=== PATIENT | male | born 1960 | race Two or more races ===

== ENCOUNTER 2017-05-04 11:40 | Inpatient (IN) | payer OTHER ==
[2017-05-04 12:08] VITALS: BMI 40.6
[2017-05-04] MEDS ORDERED: ALBUTEROL SO4 2.5/IPRATROPIUM 0.5 INH SOL 3 ML VIAL.NEB. NEB ONE ×4 (13:08→17:30)
--- NOTE | 2017-05-04 13:10 | PDOC ---
History of Present Illness - General Chief Complaint: Revisit, Lab Variance Stated Complaint: LAB VARIANCE, ADMIT (PCP SENT) Time Seen by Provider: 05/04/17 12:54 History Source: Patient Exam Limitations: No Limitations - History of Present Illness Initial Comments: 05/04/17 14:06 Patient is a 56-year-old male with past medical history of hypertension, CHF, asthma, A. fib on warfarin, who presents to the emergency department today for shortness of breath and shortness of breath on exertion. Patient recently had a exercise stress test done through Dr. Dorman, cardiology. Results showed a moderately sized anterior wall reversible perfusion defects consistent with ischemia as well as a moderately sized inferior wall perfusion defect consistent with ischemia. There is also a dilated left ventricle with severe global hypokinesis and severely reduced systolic function with an ejection fraction of approximately 30%. Pt. states he has been taking lasix as an outpatient. Given his stress test results, failed home treatment for his CHF, and his inability to ambulate d/t shortness of breath, Dr. Nath recommended the patient come over for admission. Patient admits to orthopnea, cough, wheeze , dyspnea on exertion, dyspnea at rest. Denies fevers, chills, chest pain, palpitations, nausea, vomiting and diarrhea. Past History - Travel Traveled outside of the country in the last 30 days: No Close contact w/someone who was outside of country & ill: No - Past Medical History Allergies/Adverse Reactions: Allergies Allergy/AdvReac Type Severity Reaction Status Date / Time No Known Allergies Allergy Verified 05/04/17 12:02 Home Medications: Ambulatory Orders Furosemide [Lasix -] 40 mg PO DAILY 05/04/17 Metoprolol Succinate 50 mg PO DAILY 05/04/17 Warfarin Sodium 1 mg PO ASDIR 05/04/17 Asthma: Yes COPD: No HTN: Yes Hypercholesterolemia: Yes - Surgical History Appendectomy: Yes - Immunization History Immunization Up to Date: Yes - Suicide/Smoking/Psychosocial Hx Smoking History: Never smoked Have you smoked in the past 12 months: No If you are a former smoker, when did you quit?: 20YRS Information on smoking cessation initiated: No Hx Alcohol Use: No Drug/Substance Use Hx: No Substance Use Type: None Review of Systems - Review of Systems Able to Perform ROS?: Yes Comments:: 05/04/17 14:15 GENERAL: Well developed, well nourished, obese. Awake and alert, oriented x3. No acute distress. Sitting on exam bed HEENT: Normocephalic, atraumatic. PERRLA, EOMI. No conjunctival pallor. Sclera are non- icteric. Moist mucous membranes. Oropharynx is clear. NECK: Supple. Full ROM. No JVD. Carotid pulses 2+ and symmetric, without bruits. No thyromegaly. No lymphadenopathy. CARDIOVASCULAR: Irregularly irregular rate and rhythm. distant heart sounds. Unable to appreciate murmurs, rubs, or gallops d/t noisy lung sounds. Distal pulses are 2 + and symmetric. PULMONARY: No evidence of respiratory distress. Lungs with expiratory wheezing throughout all lung valles, rales at the bases. ABDOMINAL: Soft. Non-tender. Non-distended. No rebound or guarding. No organomegaly. Normoactive bowel sounds. MUSCULOSKELETAL Normal range of motion at all joints. No bony deformities or tenderness. No CVA tenderness. EXTREMITIES: No cyanosis. No clubbing. No edema noted. No calf tenderness. SKIN: Warm and dry. Normal capillary refill. No rashes. No jaundice. NEUROLOGICAL: Alert, awake, appropriate. Cranial nerves 2-12 intact. No deficits to light touch and temperature in face, upper extremities and lower extremities. No motor deficits in the in face, upper extremities and lower extremities. Normoreflexic in the upper and lower extremities. Normal speech. Toes are down- going bilaterally. Gait is normal without ataxia. PSYCHIATRIC: Cooperative. Good eye contact. Appropriate mood and affect. Is the patient limited Amharic proficient: No *Physical Exam - Vital Signs Last Vital Signs Temp Pulse Resp BP Pulse Ox 98.1 F 57 L 17 150/84 93 L 05/04/17 12:03 05/04/17 12:03 05/04/17 12:03 05/04/17 12:03 05/04/17 12:03 ED Treatment Course - LABORATORY CBC & Chemistry Diagram: 05/04/17 13:30 05/04/17 13:17 Medical Decision Making - Medical Decision Making 05/04/17 15:45 Patient is a 56-year-old male with past medical history of hypertension, CHF, asthma, A. fib on warfarin, who presents to the emergency department with 1 month of worsening shortness of breath on exertion consistent with CHF. Given recent stress test results anticipate that this patient will need admission for further workup and management of his CHF. Patient also with wheezing on exam. Suspects asthma exacerbation at this time as well. Triage vitals notable for an oxygen saturation of 93%. 1.CBC, CMP, BNP, troponin, mag, UA 2.EKG, chest x-ray 3.DuoNeb's, oxygen 4.reevaluate 05/04/17 17:19 EKG: Rate 81 bpm, atrial fibrillation with PVC's, normal axis. Nonspecific T- wave abnormality in inferior leads. T-wave inversion in anterior leads. Lab work is notable for an index detectable troponin of 0.04., We'll repeat given patient's history. Leuk esterase positive however no urinary symptoms, low WBCs unlikely UTI. Patient improved with DuoNeb's however still with wheezing. Patient unable to ambulate without being short of breath. Chest x-ray shows no vascular congestion or pneumonia. Will call Dr. Walters to admit the patient to tele for further cardiac work up. 05/04/17 17:[address] Walters's [facility] [place]. Case discussed and agrees to have the patient admitted to tele for further management. States Dr. Walters will admit. *DC/Admit/Observation/Transfer Diagnosis at time of Disposition: Acute exacerbation of CHF (congestive heart failure) Qualifiers: Heart failure type: unspecified Qualified Code(s): I50.9 - Heart failure, unspecified Afib Qualifiers: Atrial fibrillation type: chronic Qualified Code(s): I48.2 - Chronic atrial fibrillation Asthma exacerbation Qualifiers: Asthma severity: mild Asthma persistence: intermittent Qualified Code(s): J45.21 - Mild intermittent asthma with (acute) exacerbation Hypertension Qualifiers: Hypertension type: unspecified Qualified Code(s): I10 - Essential (primary) hypertension - Discharge Dispostion Condition at time of disposition: Stable Admit: Yes - Referrals - Patient Instructions - Post Discharge Activity
--- NOTE | 2017-05-04 13:13 | PDOC ---
*Physical Exam - Vital Signs Last Vital Signs Temp Pulse Resp BP Pulse Ox 98.1 F 57 L 17 150/84 93 L 05/04/17 12:03 05/04/17 12:03 05/04/17 12:03 05/04/17 12:03 05/04/17 12:03 ED Treatment Course - LABORATORY CBC & Chemistry Diagram: 05/05/17 07:10 05/05/17 07:10 Medical Decision Making - Medical Decision Making 05/04/17 13:11 Pt seen by the Advanced Practice Provider under my direct supervision Ancillary studies reviewed I agree with plan as outlined by the Advanced Practice Provider JULITO Mcqueen *DC/Admit/Observation/Transfer Diagnosis at time of Disposition: Acute exacerbation of CHF (congestive heart failure), Afib, Asthma exacerbation , Hypertension - Discharge Dispostion Condition at time of disposition: Stable - Referrals - Patient Instructions - Post Discharge Activity
[2017-05-04 13:39] LABS: BASO % 0.8 % (0-2.0); EOS % 8.2 % (0-4.5); HEMATOCRIT 49.3 % (35.4-49); HEMOGLOBIN 16.5 GM/dL (11.7-16.9); LYMPH % 24.8 % (8-40); MCHC 33.3 g/dl (32.0-35.9); MEAN CELL VOLUME 90.1 fl (80-96); MEAN PLT VOLUME 8.2 fl (7.5-11.1); MONO % 11.3 % (3.8-10.2); NEUT % 54.9 % (42.8-82.8); PLATELET COUNT 235 K/MM3 (134-434); RBC 5.48 M/mm3 (4.00-5.60); RDW 13.7 % (11.9-15.9); WHITE BLOOD COUNT 9.2 K/mm3 (4.0-10.0)
[2017-05-04 13:53] LABS: URINE APPEARANCE SLCLOUDY; URINE BILIRUBIN NEGATIVE (NEGATIVE); URINE BLOOD NEGATIVE (NEGATIVE); URINE COLOR YELLOW; URINE GLUCOSE (UA) NEGATIVE (NEGATIVE); URINE KETONE NEGATIVE (NEGATIVE); URINE NITRITE NEGATIVE (NEGATIVE); URINE PROTEIN NEGATIVE (NEGATIVE)
[2017-05-04 13:56] LABS: URINE LEUK ESTERASE 1+ (NEGATIVE)
[2017-05-04 13:58] LABS: EPI CELLS RARE /HPF (FEW); URINE HYALINE CAST 2 /lpf; URINE MUCUS MODERATE
[2017-05-04 14:38] LABS: ALBUMIN 3.3 g/dl (3.4-5.0); ALK PHOS 74 U/L (45-117); ANION GAP 10 (8-16); BILIRUBIN,TOTAL 0.4 mg/dL (0.2-1.0); BLOOD UREA NITROGEN 21 mg/dL (7-18); CALCIUM 8.9 mg/dL (8.5-10.1); CHLORIDE 106 mmol/L (98-107); CO2 24 mmol/L (21-32); CREATININE 1.1 mg/dL (0.7-1.3); GLUCOSE,RANDOM 96 mg/dL (74-106); POTASSIUM 3.9 mmol/L (3.5-5.1); SGOT/AST 24 U/L (15-37); SGPT/ALT 31 U/L (12-78); SODIUM 140 mmol/L (136-145); TOT PROT 7.3 g/dl (6.4-8.2)
--- NOTE | 2017-05-04 16:27 | EKG ---
Test Reason : Blood Pressure : / mmHG Vent. Rate : 081 BPM Atrial Rate : 375 BPM P-R Int : 000 ms QRS Dur : 090 ms QT Int : 390 ms P-R-T Axes : 000 032 244 degrees QTc Int : 453 ms ATRIAL FIBRILLATION WITH PREMATURE VENTRICULAR OR ABERRANTLY CONDUCTED COMPLEXES ABNORMAL ECG WHEN COMPARED WITH ECG OF 26-SEP-2005 11:47, ATRIAL FIBRILLATION HAS REPLACED SINUS RHYTHM VENT. RATE HAS INCREASED BY 37 BPM NONSPECIFIC T WAVE ABNORMALITY, WORSE IN INFERIOR LEADS T WAVE INVERSION NOW EVIDENT IN ANTERIOR LEADS Confirmed by NATASHA DEE MD ([id number]) on 05/04/2017 4:27:15 PM Referred By: Confirmed By:NATASHA DEE MD
--- NOTE | 2017-05-04 20:11 | HP ---
Admitting History and Physical - Admission Chief Complaint: dyspnea History of Present Illness: Patient is a 56-year-old male with past medical history of hypertension, CHF, asthma, A. fib on warfarin, who presents to the emergency department today for shortness of breath and shortness of breath on exertion. He was seen at office in chf 2/ to non compliance with meds and diet, Lasix was increased and referred to Cardiology ( Dr Dorman) . He recently had a exercise stress test done through Dr. Dorman, cardiology - Results showed a moderately sized anterior wall reversible perfusion defects consistent with ischemia as well as a moderately sized inferior wall perfusion defect consistent with ischemia. There is also a dilated left ventricle with severe global hypokinesis and severely reduced systolic function with an ejection fraction of approximately 30%. Pt. states he has been taking lasix as an outpatient. Given his stress test results , failed home treatment for his CHF, and his inability to ambulate d/t shortness of breath, Dr. Cook recommended the patient come over for admission. Patient admits to orthopnea, cough, wheeze, dyspnea on exertion, dyspnea at rest. Denies fevers, chills, chest pain, palpitations, nausea, vomiting and diarrhea. History Source: Patient, Significant Other, Medical Record Limitations to Obtaining History: No Limitations - Past Medical History Cardiovascular: Yes: CAD, CHF, HTN, Hyperlipdemia Pulmonary: Yes: Asthma - Smoking History Smoking history: Never smoked Have you smoked in the past 12 months: No If you are a former smoker, when did you quit?: 20YRS - Alcohol/Substance Use Hx Alcohol Use: No - Social History Usual Living Arrangement: Yes: With Spouse ADL: Independent Home Medications - Allergies Allergies/Adverse Reactions: Allergies Allergy/AdvReac Type Severity Reaction Status Date / Time No Known Allergies Allergy Verified 05/04/17 12:02 - Home Medications Home Medications: Ambulatory Orders Furosemide [Lasix -] 40 mg PO DAILY 05/04/17 Metoprolol Succinate 50 mg PO DAILY 05/04/17 Warfarin Sodium 1 mg PO ASDIR 05/04/17 Review of Systems - Review of Systems Constitutional: denies: Chills, Fever, Loss of Appetite, Weakness Eyes: reports: No Symptoms HENT: reports: No Symptoms Neck: reports: No Symptoms Cardiovascular: reports: Edema. denies: Chest Pain, Palpitations Respiratory: reports: Exercise Intolerance, Orthopnea, SOB, SOB on Exertion, Wheezing Gastrointestinal: reports: No Symptoms Genitourinary: reports: No Symptoms Breasts: reports: No Symptoms Reported Musculoskeletal: reports: No Symptoms Integumentary: reports: No Symptoms Neurological: reports: No Symptoms Endocrine: reports: No Symptoms Hematology/Lymphatic: reports: No Symptoms Psychiatric: reports: No Symptoms Physical Examination Vital Signs: Vital Signs Temperature 98.0 F 05/04/17 17:39 Pulse Rate 72 05/04/17 17:39 Respiratory Rate 16 05/04/17 17:39 Blood Pressure 102/78 05/04/17 17:39 O2 Sat by Pulse Oximetry (%) 96 05/04/17 17:39 Constitutional: Yes: Mild Distress, Obese Eyes: Yes: WNL HENT: Yes: WNL Neck: Yes: WNL Cardiovascular: Yes: Gallop Respiratory: Yes: Diminished, SOB, SOB on Exertion, Wheezes Gastrointestinal: Yes: Abdomen, Obese ...Rectal Exam: Yes: Deferred Renal/: Yes: WNL Breast(s): Yes: WNL Musculoskeletal: Yes: WNL Extremities: Yes: WNL. No: Calf Tenderness, Cyanosis Edema: Yes Edema: LUE: 1+, RLE: 1+ Peripheral Pulses WNL: Yes Integumentary: Yes: WNL Wound/Incision: Yes: Clean/Dry Neurological: Yes: Alert, Oriented ...Motor Strength: WNL Psychiatric: Yes: Alert, Oriented Labs: CBC, BMP 05/04/17 13:30 05/04/17 13:17 Problem List - Problems (1) Acute exacerbation of CHF (congestive heart failure) Assessment/Plan: Lasix IV BID daily weights add ACEi weight reduction / obesity counseling Code(s): I50.9 - HEART FAILURE, UNSPECIFIED Qualifiers: Heart failure type: systolic Qualified Code(s): I50.23 - Acute on chronic systolic (congestive) heart failure (2) Afib Assessment/Plan: rate controlled on BB Code(s): I48.91 - UNSPECIFIED ATRIAL FIBRILLATION Qualifiers: Atrial fibrillation type: chronic Qualified Code(s): I48.2 - Chronic atrial fibrillation (3) Obesities, morbid Assessment/Plan: obesity counseling Code(s): E66.01 - MORBID (SEVERE) OBESITY DUE TO EXCESS CALORIES (4) Asthma exacerbation Assessment/Plan: Nebulizer IV steroids / inhaled steroids singulair O2 Code(s): J45.901 - UNSPECIFIED ASTHMA WITH (ACUTE) EXACERBATION Qualifiers: Asthma severity: mild Asthma persistence: intermittent Qualified Code(s) : J45.21 - Mild intermittent asthma with (acute) exacerbation (5) Hypertension Code(s): I10 - ESSENTIAL (PRIMARY) HYPERTENSION Qualifiers: Hypertension type: essential hypertension Qualified Code(s): I10 - Essential (primary) hypertension (6) Cardiomyopathy as manifestation of underlying disease Code(s): I43 - CARDIOMYOPATHY IN DISEASES CLASSIFIED ELSEWHERE (7) Ischemic dilated cardiomyopathy Code(s): I25.5 - ISCHEMIC CARDIOMYOPATHY; I42.0 - DILATED CARDIOMYOPATHY
[2017-05-04] MEDS ORDERED: ALBUTEROL SO4 2.5/IPRATROPIUM 0.5 INH SOL 3 ML VIAL.NEB. NEB PRN (20:37)
[2017-05-04] MEDS: DOCUSATE SODIUM 100 MG CAPSULE (FP) PO SCH (21:36)
[2017-05-04] MEDS: POTASSIUM CHLORIDE TABS 20 MEQ TABLET.ER (FP) PO SCH (21:37)
[2017-05-04] MEDS: ATORVASTATIN CA 40 MG TABLET (FP) PO SCH (21:37)
[2017-05-04] MEDS: METOPROLOL TARTRATE 25 MG TABLET (FP) PO SCH (21:37)
[2017-05-04 23:03] LABS: MAGNESIUM 2.7 mg/dL (1.8-2.4)
[2017-05-04] MEDS ORDERED: methylPREDNISolone NA SUCC 125 MG/2 ML VIAL IVPUSH ONE (23:45)
[2017-05-04] MEDS ORDERED: FUROSEMIDE 40 MG/4 ML INJECTABLE VIAL IVPUSH ONE (23:45)
[2017-05-05 00:04] LABS: N-TERMINAL BNP 525.57 pg/ml (5-125)
[2017-05-05] MEDS: ALBUTEROL SO4 2.5/IPRATROPIUM 0.5 INH SOL 3 ML VIAL.NEB. NEB SCH ×5 (00:10→20:25)
[2017-05-05] MEDS: FUROSEMIDE 40 MG/4 ML INJECTABLE VIAL IVPUSH SCH ×2 (05:52→13:07)
[2017-05-05 07:32] LABS: HEMATOCRIT 50.6 % (35.4-49); HEMOGLOBIN 16.8 GM/dL (11.7-16.9); MCHC 33.1 g/dl (32.0-35.9); MEAN CELL VOLUME 90.6 fl (80-96); MEAN PLT VOLUME 9.2 fl (7.5-11.1); PLATELET COUNT 255 K/MM3 (134-434); RBC 5.58 M/mm3 (4.00-5.60); RDW 13.9 % (11.9-15.9); WHITE BLOOD COUNT 6.2 K/mm3 (4.0-10.0)
[2017-05-05 07:40] LABS: INR 2.21 (0.82-1.09)
[2017-05-05] MEDS: BUDESONIDE 0.25 MG/2ML INH SUSP VIAL NEB SCH ×3 (07:41→22:32)
[2017-05-05] MEDS ORDERED: ALBUTEROL SO4 2.5/IPRATROPIUM 0.5 INH SOL 3 ML VIAL.NEB. NEB SCH (08:00)
[2017-05-05] MEDS ORDERED: BUDESONIDE 0.25 MG/2ML INH SUSP VIAL NEB SCH (08:00)
[2017-05-05 08:16] LABS: ANION GAP 9 (8-16); BLOOD UREA NITROGEN 21 mg/dL (7-18); CALCIUM 8.7 mg/dL (8.5-10.1); CHLORIDE 100 mmol/L (98-107); CO2 30 mmol/L (21-32); CREATININE 1.3 mg/dL (0.7-1.3); GLUCOSE,RANDOM 151 mg/dL (74-106); MAGNESIUM 2.3 mg/dL (1.8-2.4); PHOSPHOROUS 3.5 mg/dL (2.5-4.9); SODIUM 139 mmol/L (136-145)
--- NOTE | 2017-05-05 09:04 | EKG ---
Test Reason : Blood Pressure : / mmHG Vent. Rate : 098 BPM Atrial Rate : 101 BPM P-R Int : 000 ms QRS Dur : 090 ms QT Int : 376 ms P-R-T Axes : 000 032 267 degrees QTc Int : 480 ms ATRIAL FIBRILLATION WITH PREMATURE VENTRICULAR OR ABERRANTLY CONDUCTED COMPLEXES POSSIBLE ANTERIOR INFARCT , AGE UNDETERMINED NONSPECIFIC ST ABNORMALITY ABNORMAL ECG WHEN COMPARED WITH ECG OF 04-MAY-2017 14:33, NO SIGNIFICANT CHANGE WAS FOUND Confirmed by ROSALES PEREZ MD ([id number]) on 05/05/2017 9:04:20 AM Referred By: Confirmed By:ROSALES PEREZ MD
[2017-05-05] MEDS: METOPROLOL TARTRATE 25 MG TABLET (FP) PO SCH (09:58)
[2017-05-05] MEDS: POTASSIUM CHLORIDE TABS 20 MEQ TABLET.ER (FP) PO SCH (09:58)
[2017-05-05] MEDS: POLYETHYLENE GLYCOL 3350 119 GM BTL PO SCH (09:59)
[2017-05-05] MEDS: DOCUSATE SODIUM 100 MG CAPSULE (FP) PO SCH ×2 (09:59→21:46)
--- NOTE | 2017-05-05 11:40 | CON.CARD ---
Cardiology Consult (text) - Consultation Consultation Note: cc: sob hpi: 56 m hx chf, hld, htn, afib, presumed cad here with sob. Pt with sob/barbosa for several days. No cp, palps, dizzy, loc, pnd, le edema. +orthopnea. Feels like his usual chf, [facility] Sees dr rojas for cardio. pmh: per hpi psh: cardioversion social: no tob fam: no premature cad, scd ros: per hpi; no cough, gib, hematuria, dysuria, muscle pain, babcock, vision changes meds: Home Medications Medication Instructions Recorded Furosemide [Lasix -] 40 mg PO DAILY 05/04/17 Metoprolol Succinate 50 mg PO DAILY 05/04/17 Warfarin Sodium 1 mg PO ASDIR 05/04/17 pe: Vital Signs Period Temp Pulse Resp BP Sys/Billings Pulse Ox Last 24 Hr 97.6 F-98.6 F 57-85 16-20 102-150/67-94 93-96 nad no jvd irreg s1s2 no mrg cta bl nl eff aaox3 no le e/c/c abd nt nd pos bs no jaundice diaphoresis pos dp pt no carotid bruits Laboratory Last Values WBC 6.2 K/mm3 (4.0-10.0) D 05/05/17 07:10 RBC 5.58 M/mm3 (4.00-5.60) 05/05/17 07:10 Hgb 16.8 GM/dL (11.7-16.9) 05/05/17 07:10 Hct 50.6 % (35.4-49) H 05/05/17 07:10 MCV 90.6 fl (80-96) 05/05/17 07:10 MCH 30.0 pg (25.7-33.7) 05/05/17 07:10 MCHC 33.1 g/dl (32.0-35.9) 05/05/17 07:10 RDW 13.9 % (11.9-15.9) 05/05/17 07:10 Plt Count 255 K/MM3 (134-434) 05/05/17 07:10 MPV 9.2 fl (7.5-11.1) D 05/05/17 07:10 Neutrophils % 54.9 % (42.8-82.8) 05/04/17 13:30 Lymphocytes % 24.8 % (8-40) 05/04/17 13:30 Monocytes % 11.3 % (3.8-10.2) H 05/04/17 13:30 Eosinophils % 8.2 % (0-4.5) H 05/04/17 13:30 Basophils % 0.8 % (0-2.0) 05/04/17 13:30 PT with INR 25.00 SEC (9.98-11.88) H 05/05/17 07:10 INR 2.21 (0.82-1.09) H 05/05/17 07:10 Sodium 139 mmol/L (136-145) 05/05/17 07:10 Potassium 4.0 mmol/L (3.5-5.1) 05/05/17 07:10 Chloride 100 mmol/L (98-107) 05/05/17 07:10 Carbon Dioxide 30 mmol/L (21-32) D 05/05/17 07:10 Anion Gap 9 (8-16) 05/05/17 07:10 BUN 21 mg/dL (7-18) H 05/05/17 07:10 Creatinine 1.3 mg/dL (0.7-1.3) 05/05/17 07:10 Creat Clearance w eGFR > 60 (>60) 05/04/17 13:17 Random Glucose 151 mg/dL (74-106) H D 05/05/17 07:10 Calcium 8.7 mg/dL (8.5-10.1) 05/05/17 07:10 Phosphorus 3.5 mg/dL (2.5-4.9) 05/05/17 07:10 Magnesium 2.3 mg/dL (1.8-2.4) 05/05/17 07:10 Total Bilirubin 0.4 mg/dL (0.2-1.0) 05/04/17 13:17 AST 24 U/L (15-37) 05/04/17 13:17 ALT 31 U/L (12-78) 05/04/17 13:17 Alkaline Phosphatase 74 U/L (45-117) 05/04/17 13:17 Creatine Kinase 267 IU/L (39-308) 05/05/17 07:10 Creatine Kinase Index 0.9 % (0.0-5.0) 05/05/17 07:10 CK-MB (CK-2) 2.464 ng/mL (0.5-3.6) 05/05/17 07:10 Troponin I 0.04 ng/ml (0.00-0.05) 05/05/17 07:10 B-Natriuretic Peptide 525.57 pg/ml (5-125) H 05/04/17 13:17 Total Protein 7.3 g/dl (6.4-8.2) 05/04/17 13:17 Albumin 3.3 g/dl (3.4-5.0) L 05/04/17 13:17 Urine Color Yellow 05/04/17 13:40 Urine Appearance Slcloudy 05/04/17 13:40 Urine pH 5.0 (5.0-8.0) 05/04/17 13:40 Ur Specific [place] 1.027 (1.001-1.035) 05/04/17 13:40 Urine Protein Negative (NEGATIVE) 05/04/17 13:40 Urine Glucose (UA) Negative (NEGATIVE) 05/04/17 13:40 Urine Ketones Negative (NEGATIVE) 05/04/17 13:40 Urine Blood Negative (NEGATIVE) 05/04/17 13:40 Urine Nitrite Negative (NEGATIVE) 05/04/17 13:40 Urine Bilirubin Negative (NEGATIVE) 05/04/17 13:40 Urine Urobilinogen 2.0 mg/dL (0.2-1.0) 05/04/17 13:40 Ur Leukocyte Esterase 1+ (NEGATIVE) H 05/04/17 13:40 Urine WBC (Auto) 7 /hpf (3-5) 05/04/17 13:40 Urine RBC (Auto) 15 /hpf (0-3) 05/04/17 13:40 Ur Epithelial Cells Rare /HPF (FEW) 05/04/17 13:40 Hyaline Casts 2 /lpf 05/04/17 13:40 Urine Mucus Moderate 05/04/17 13:40 cxr: clear lungs ecg: afib, lat twis/st dep tele: afib, rate controlled mibi 04/2017: +ecg, mod ant ischemia, mod inf ischemia, lvef 30% a/p: 56 m hx chf, hld, htn, afib, presumed cad here with sob. acute syst chf: -cont lasix 40 iv bid, monitor daily wts, chem7 -check echo -cont toprol, will add ashlee as well -has +nuclear stress this week so possibly has ischemic cardiomyopathy. will need cardiac cath when chf stable. htn: -cont current meds afib: -cont toprol for rate control, monitor on tele -cont coumadin for ac hld: -cont statin presumed cad: -as above -no anginal sxs -no acs, trops neg x3 -cont bb, ashlee, statin. no asa, on AC
[2017-05-05] MEDS: LISINOPRIL 5 MG TABLET (FP) PO SCH (13:07)
[2017-05-05] MEDS: methylPREDNISolone NA SUCC 40 MG/1 ML VIAL IVPUSH SCH ×2 (13:07→17:29)
[2017-05-05] MEDS: PANTOPRAZOLE 40 MG TABLET (FP) PO SCH (13:07)
[2017-05-05] MEDS: WARFARIN NA 1 MG TABLET (FP) PO SCH (17:29)
--- NOTE | 2017-05-05 19:15 | PN ---
Progress Note (short form) - Note Progress Note: in bed states was urinating "all night" at least 6 times breathing better this am Vital Signs Period Temp Pulse Resp BP Sys/Billings Pulse Ox Last 24 Hr 97.6 F-98.8 F 67-98 18-20 134-148/67-98 94-95 neck -jvd heart S1/S2 irreg lungs decreased BS / exp wheezing abd obese / soft ext no edema /+pulses CBC, BMP 05/05/17 07:10 05/05/17 07:10 Intake & Output 05/02/17 05/03/17 05/04/17 05/05/17 23:59 23:59 23:59 23:59 Intake Total 190 10 Balance 190 10 Weight 267 lb 264 lb 12.8 oz Active Medications Albuterol/Ipratropium (Duoneb -) 1 amp NEB Q4H PRN PRN Reason: SHORTNESS OF BREATH Last Admin: 05/04/17 21:14 Dose: 1 amp Albuterol/Ipratropium (Duoneb -) 1 amp NEB RQID [facility] Last Admin: 05/05/17 16:53 Dose: 1 amp Atorvastatin Calcium (Lipitor -) 40 mg PO HS [facility] Last Admin: 05/04/17 21:37 Dose: 40 mg Budesonide (Pulmicort 0.25 Mg Nebulizer -) 1 amp NEB RBID [facility] Last Admin: 05/05/17 07:41 Dose: 1 amp Docusate Sodium (Colace -) 200 mg PO BID [facility] Last Admin: 05/05/17 09:59 Dose: 200 mg Furosemide (Lasix Injection -) 40 mg IVPUSH BID@0600,1400 [facility] Last Admin: 05/05/17 13:07 Dose: 40 mg Lisinopril (Prinivil) 5 mg PO DAILY [facility] Last Admin: 05/05/17 13:07 Dose: 5 mg Methylprednisolone Sodium Succinate (Solu-Medrol -) 80 mg IVPUSH Q8H-IV [facility] Last Admin: 05/05/17 17:29 Dose: 80 mg Metoprolol Succinate (Toprol Xl -) 25 mg PO BID [facility] Pantoprazole Sodium (Protonix -) 40 mg PO DAILY [facility] Last Admin: 05/05/17 13:07 Dose: 40 mg Polyethylene Glycol (Miralax (For Daily Use) -) 17 gm PO DAILY [facility] Last Admin: 05/05/17 09:59 Dose: Not Given Potassium Chloride (K-Dur -) 40 meq PO DAILY [facility] Last Admin: 05/05/17 09:58 Dose: 40 meq Warfarin Sodium (Coumadin -) 1 mg PO DAILY@1800 [facility] Last Admin: 05/05/17 17:29 Dose: 1 mg 56 y/o male PMH A Fib/ CHF / HTN / HLD / Morbid obesity / admitted with inc dyspnea # Acute Systolic HF recent echo LVEF 30% mibi + ischemic changes Lasix IV bid daily weights will add Saul i Cardio consult arrange for Cath when stable # A fib continue BB (toprol) rate controlled continue a/c with coumadin ( not on NOAC due to cost) monitor tele inc stimulation with B-agonist for Asthma tx # Asthma exacerbated nebulizer / O2 / steroids/ PPi # HTN controlled on current meds continue medications weight loss # obesity discussed risk / weight loss counseling nutrition consult # HLD continue statins Problem List - Problems (1) Acute exacerbation of CHF (congestive heart failure) Code(s): I50.9 - HEART FAILURE, UNSPECIFIED Qualifiers: Heart failure type: systolic Qualified Code(s): I50.23 - Acute on chronic systolic (congestive) heart failure (2) Afib Code(s): I48.91 - UNSPECIFIED ATRIAL FIBRILLATION Qualifiers: Atrial fibrillation type: chronic Qualified Code(s): I48.2 - Chronic atrial fibrillation (3) Obesities, morbid Code(s): E66.01 - MORBID (SEVERE) OBESITY DUE TO EXCESS CALORIES (4) Asthma exacerbation Code(s): J45.901 - UNSPECIFIED ASTHMA WITH (ACUTE) EXACERBATION Qualifiers: Asthma severity: mild Asthma persistence: intermittent Qualified Code(s) : J45.21 - Mild intermittent asthma with (acute) exacerbation (5) Hypertension Code(s): I10 - ESSENTIAL (PRIMARY) HYPERTENSION Qualifiers: Hypertension type: essential hypertension Qualified Code(s): I10 - Essential (primary) hypertension (6) Cardiomyopathy as manifestation of underlying disease Code(s): I43 - CARDIOMYOPATHY IN DISEASES CLASSIFIED ELSEWHERE (7) Ischemic dilated cardiomyopathy Code(s): I25.5 - ISCHEMIC CARDIOMYOPATHY; I42.0 - DILATED CARDIOMYOPATHY
[2017-05-05] MEDS: ATORVASTATIN CA 40 MG TABLET (FP) PO SCH (21:46)
[2017-05-05] MEDS: metoPROLOL SUCCINATE 25 MG TAB.SR.24H (FP) PO SCH (21:46)
[2017-05-06] MEDS: methylPREDNISolone NA SUCC 40 MG/1 ML VIAL IVPUSH SCH ×4 (02:32→21:50)
[2017-05-06] MEDS: FUROSEMIDE 40 MG/4 ML INJECTABLE VIAL IVPUSH SCH ×2 (06:58→14:34)
[2017-05-06] MEDS: ALBUTEROL SO4 2.5/IPRATROPIUM 0.5 INH SOL 3 ML VIAL.NEB. NEB SCH ×4 (08:40→20:36)
[2017-05-06] MEDS: BUDESONIDE 0.25 MG/2ML INH SUSP VIAL NEB SCH ×2 (08:47→20:36)
[2017-05-06] MEDS: POTASSIUM CHLORIDE TABS 20 MEQ TABLET.ER (FP) PO SCH (09:36)
[2017-05-06] MEDS: LISINOPRIL 5 MG TABLET (FP) PO SCH (09:37)
[2017-05-06] MEDS: POLYETHYLENE GLYCOL 3350 119 GM BTL PO SCH (09:37)
[2017-05-06] MEDS: PANTOPRAZOLE 40 MG TABLET (FP) PO SCH (09:37)
[2017-05-06] MEDS: DOCUSATE SODIUM 100 MG CAPSULE (FP) PO SCH ×2 (09:37→21:50)
[2017-05-06] MEDS: metoPROLOL SUCCINATE 25 MG TAB.SR.24H (FP) PO SCH ×2 (09:37→21:50)
--- NOTE | 2017-05-06 11:27 | PN ---
Progress Note (short form) - Note Progress Note: s: no cp palps dizzy; sob a little better o: Vital Signs Period Temp Pulse Resp BP Sys/Billings Pulse Ox Last 24 Hr 97.6 F-98.8 F 72-98 16-22 110-149/63-98 90 nad no jvd irreg s1s2 no mrg cta bl nl eff aaox3 no le e/c/c abd nt nd pos bs no jaundice diaphoresis Current Medications Generic Name Dose Route Start Last Admin Trade Name Freq PRN Reason Stop Dose Admin Albuterol/Ipratropium 1 amp 05/04/17 20:37 05/04/17 21:14 Duoneb - NEB 1 amp Q4H PRN Administration SHORTNESS OF BREATH Albuterol/Ipratropium 1 amp 05/04/17 23:45 05/06/17 08:40 Duoneb - NEB 1 amp RQID [facility] Administration Atorvastatin Calcium 40 mg 05/04/17 22:00 05/05/17 21:46 Lipitor - PO 40 mg HS [facility] Administration Budesonide 1 amp 05/04/17 23:45 05/06/17 09:47 Pulmicort 0.25 Mg Nebulizer - NEB 1 amp RBID [facility] Administration Docusate Sodium 200 mg 05/04/17 22:00 05/06/17 09:37 Colace - PO 200 mg BID [facility] Administration Furosemide 60 mg 05/06/17 11:23 Lasix Injection - IVPUSH BID@0600,1400 [facility] Lisinopril 5 mg 05/05/17 11:45 05/06/17 09:37 Prinivil PO 5 mg DAILY [facility] Administration Methylprednisolone Sodium Succinate 80 mg 05/05/17 11:45 05/06/17 09:37 Solu-Medrol - IVPUSH 80 mg Q8H-IV [facility] Administration Metoprolol Succinate 25 mg 05/05/17 22:00 05/06/17 09:37 Toprol Xl - PO 25 mg BID [facility] Administration Pantoprazole Sodium 40 mg 05/05/17 11:45 05/06/17 09:37 Protonix - PO 40 mg DAILY [facility] Administration Polyethylene Glycol 17 gm 05/05/17 10:00 05/06/17 09:37 Miralax (For Daily Use) - PO Not Given DAILY [facility] Potassium Chloride 40 meq 05/04/17 20:45 05/06/17 09:36 K-Dur - PO 40 meq DAILY [facility] Administration Warfarin Sodium 1 mg 05/05/17 18:00 05/05/17 17:29 Coumadin - PO 1 mg DAILY@1800 [facility] Administration CBC, BMP 05/05/17 07:10 05/05/17 07:10 cxr: clear lungs ecg: afib, lat twis/st dep tele: afib, rate controlled mibi 04/2017: +ecg, mod ant ischemia, mod inf ischemia, lvef 30% echo 04/2017: tds, mild lve, mild-mod dec lvef, nl rv, mod lae, mild mr/tr a/p: 56 m hx chf, hld, htn, afib, presumed cad here with sob. acute syst chf: -cont lasix iv, will increase to 60 iv bid as wt unchanged and pt reports decreased urine output, monitor daily wts, chem7 -cont toprol, added ashlee as well -has +nuclear stress this past week so possibly has ischemic cardiomyopathy. will need cardiac cath when chf stable. htn: -cont current meds afib: -cont toprol for rate control, monitor on tele -cont coumadin for ac hld: -cont statin presumed cad: -as above -no anginal sxs -no acs, trops neg x3 -cont bb, ashlee, statin. no asa, on AC
[2017-05-06 14:12] LABS: HEMATOCRIT 48.9 % (35.4-49); HEMOGLOBIN 15.9 GM/dL (11.7-16.9); MCH 29.5 pg (25.7-33.7); MCHC 32.4 g/dl (32.0-35.9); MEAN CELL VOLUME 90.9 fl (80-96); MEAN PLT VOLUME 8.7 fl (7.5-11.1); PLATELET COUNT 243 K/MM3 (134-434); RBC 5.38 M/mm3 (4.00-5.60); RDW 14.1 % (11.9-15.9); WHITE BLOOD COUNT 15.1 K/mm3 (4.0-10.0)
--- NOTE | 2017-05-06 14:18 | PN ---
Progress Note (short form) - Note Progress Note: walking in room / O2 inplace / visibly dyspneic denies CP / diaphoresis was able to sleep " better" last night reports not able to sleep through the night at home. wt loss 8lb ( from office weigh in ) - but today gained 3lb Vital Signs Period Temp Pulse Resp BP Sys/Billings Pulse Ox Last 24 Hr 97.6 F-98.4 F 72-98 16-22 110-149/63-75 90-90 Intake & Output 05/03/17 05/04/17 05/05/17 05/06/17 23:59 23:59 23:59 23:59 Intake Total 190 120 250 Balance 190 120 250 Weight 267 lb 264 lb 12.8 oz 267 lb 6.4 oz neck -jvd heart S1/S2 irreg lungs decreased BS / no wheezing abd obese / soft ext no edema /+pulses CBC, BMP 05/06/17 14:03 Active Medications Albuterol/Ipratropium (Duoneb -) 1 amp NEB Q4H PRN PRN Reason: SHORTNESS OF BREATH Last Admin: 05/04/17 21:14 Dose: 1 amp Albuterol/Ipratropium (Duoneb -) 1 amp NEB RQID [facility] Last Admin: 05/06/17 13:03 Dose: 1 amp Atorvastatin Calcium (Lipitor -) 40 mg PO HS [facility] Last Admin: 05/05/17 21:46 Dose: 40 mg Budesonide (Pulmicort 0.25 Mg Nebulizer -) 1 amp NEB RBID [facility] Last Admin: 05/06/17 08:47 Dose: 1 amp Docusate Sodium (Colace -) 200 mg PO BID [facility] Last Admin: 05/06/17 09:37 Dose: 200 mg Furosemide (Lasix Injection -) 60 mg IVPUSH BID@0600,1400 [facility] Lisinopril (Prinivil) 5 mg PO DAILY [facility] Last Admin: 05/06/17 09:37 Dose: 5 mg Methylprednisolone Sodium Succinate (Solu-Medrol -) 60 mg IVPUSH BID [facility] Metoprolol Succinate (Toprol Xl -) 25 mg PO BID [facility] Last Admin: 05/06/17 09:37 Dose: 25 mg Pantoprazole Sodium (Protonix -) 40 mg PO DAILY [facility] Last Admin: 05/06/17 09:37 Dose: 40 mg Polyethylene Glycol (Miralax (For Daily Use) -) 17 gm PO DAILY [facility] Last Admin: 05/06/17 09:37 Dose: Not Given Potassium Chloride (K-Dur -) 40 meq PO DAILY [facility] Last Admin: 05/06/17 09:36 Dose: 40 meq Warfarin Sodium (Coumadin -) 1 mg PO DAILY@1800 [facility] Last Admin: 05/05/17 17:29 Dose: 1 mg 56 y/o male PMH A Fib/ CHF / HTN / HLD / Morbid obesity / admitted with inc dyspnea # Acute Systolic HF recent echo LVEF 30% mibi + ischemic changes Lasix IV bid increased today by cardio daily weights Saul i added Cardio consult appreciated arrange for Cath when stable # A fib continue BB (toprol) rate controlled continue a/c with coumadin ( not on NOAC due to cost) monitor tele inc stimulation with B-agonist for Asthma tx # Asthma exacerbated better contol will taper steroids nebulizer / O2 / steroids/ PPi # HTN controlled on current meds continue medications weight loss # obesity discussed risk / weight loss counseling nutrition consult # HLD continue statins Problem List - Problems (1) Acute exacerbation of CHF (congestive heart failure) Code(s): I50.9 - HEART FAILURE, UNSPECIFIED Qualifiers: Heart failure type: systolic Qualified Code(s): I50.23 - Acute on chronic systolic (congestive) heart failure (2) Afib Code(s): I48.91 - UNSPECIFIED ATRIAL FIBRILLATION Qualifiers: Atrial fibrillation type: chronic Qualified Code(s): I48.2 - Chronic atrial fibrillation (3) Obesities, morbid Code(s): E66.01 - MORBID (SEVERE) OBESITY DUE TO EXCESS CALORIES (4) Asthma exacerbation Code(s): J45.901 - UNSPECIFIED ASTHMA WITH (ACUTE) EXACERBATION Qualifiers: Asthma severity: mild Asthma persistence: intermittent Qualified Code(s) : J45.21 - Mild intermittent asthma with (acute) exacerbation (5) Hypertension Code(s): I10 - ESSENTIAL (PRIMARY) HYPERTENSION Qualifiers: Hypertension type: essential hypertension Qualified Code(s): I10 - Essential (primary) hypertension (6) Cardiomyopathy as manifestation of underlying disease Code(s): I43 - CARDIOMYOPATHY IN DISEASES CLASSIFIED ELSEWHERE (7) Ischemic dilated cardiomyopathy Code(s): I25.5 - ISCHEMIC CARDIOMYOPATHY; I42.0 - DILATED CARDIOMYOPATHY
[2017-05-06 14:27] LABS: INR 1.78 (0.82-1.09); PROTHROMBIN TIME (PATIENT) 20.1 SEC (9.98-11.88)
[2017-05-06 14:43] LABS: ANION GAP 9 (8-16); BLOOD UREA NITROGEN 37 mg/dL (7-18); CALCIUM 8.9 mg/dL (8.5-10.1); CHLORIDE 104 mmol/L (98-107); CO2 25 mmol/L (21-32); CREATININE 1.4 mg/dL (0.7-1.3); GLUCOSE,RANDOM 168 mg/dL (74-106); POTASSIUM 4.6 mmol/L (3.5-5.1); SODIUM 138 mmol/L (136-145)
[2017-05-06] MEDS: WARFARIN NA 1 MG TABLET (FP) PO SCH (17:03)
[2017-05-06] MEDS: ATORVASTATIN CA 40 MG TABLET (FP) PO SCH (21:50)
[2017-05-07] MEDS: FUROSEMIDE 40 MG/4 ML INJECTABLE VIAL IVPUSH SCH ×2 (06:28→13:25)
[2017-05-07 07:26] LABS: BASO % 0.2 % (0-2.0); HEMOGLOBIN 15.6 GM/dL (11.7-16.9); LYMPH % 7.6 % (8-40); MCH 29.5 pg (25.7-33.7); MCHC 32.5 g/dl (32.0-35.9); MEAN CELL VOLUME 90.9 fl (80-96); MONO % 3.9 % (3.8-10.2); NEUT % 88.3 % (42.8-82.8); PLATELET COUNT 232 K/MM3 (134-434); RBC 5.28 M/mm3 (4.00-5.60); RDW 14.1 % (11.9-15.9); WHITE BLOOD COUNT 15.3 K/mm3 (4.0-10.0)
[2017-05-07 07:47] LABS: ANION GAP 7 (8-16); BLOOD UREA NITROGEN 49 mg/dL (7-18); CALCIUM 8.8 mg/dL (8.5-10.1); CHLORIDE 102 mmol/L (98-107); CO2 28 mmol/L (21-32); CREATININE 1.3 mg/dL (0.7-1.3); GLUCOSE,RANDOM 129 mg/dL (74-106); MAGNESIUM 2.4 mg/dL (1.8-2.4); PHOSPHOROUS 5.2 mg/dL (2.5-4.9); POTASSIUM 4.5 mmol/L (3.5-5.1); SODIUM 137 mmol/L (136-145)
[2017-05-07] MEDS: ALBUTEROL SO4 2.5/IPRATROPIUM 0.5 INH SOL 3 ML VIAL.NEB. NEB SCH ×4 (08:00→20:42)
[2017-05-07] MEDS: BUDESONIDE 0.25 MG/2ML INH SUSP VIAL NEB SCH ×2 (08:00→20:42)
[2017-05-07] MEDS: PANTOPRAZOLE 40 MG TABLET (FP) PO SCH (09:08)
[2017-05-07] MEDS: methylPREDNISolone NA SUCC 40 MG/1 ML VIAL IVPUSH SCH ×2 (09:09→21:46)
[2017-05-07] MEDS: DOCUSATE SODIUM 100 MG CAPSULE (FP) PO SCH ×2 (09:09→21:46)
[2017-05-07] MEDS: metoPROLOL SUCCINATE 25 MG TAB.SR.24H (FP) PO SCH ×2 (09:09→21:47)
[2017-05-07] MEDS: LISINOPRIL 5 MG TABLET (FP) PO SCH (09:09)
[2017-05-07] MEDS: POTASSIUM CHLORIDE TABS 20 MEQ TABLET.ER (FP) PO SCH (09:09)
[2017-05-07] MEDS: POLYETHYLENE GLYCOL 3350 119 GM BTL PO SCH ×3 (09:10→21:47)
[2017-05-07 10:23] LABS: INR 1.59 (0.82-1.09)
--- NOTE | 2017-05-07 10:47 | PN ---
Progress Note (short form) - Note Progress Note: s: no cp palps dizzy; sob a little better o: Vital Signs Period Temp Pulse Resp BP Sys/Billings Pulse Ox Last 24 Hr 97.5 F-98.4 F 75-104 16-20 100-131/45-84 97-97 nad no jvd irreg s1s2 no mrg cta bl nl eff aaox3 no le e/c/c abd nt nd pos bs no jaundice diaphoresis Current Medications Generic Name Dose Route Start Last Admin Trade Name Freq PRN Reason Stop Dose Admin Albuterol/Ipratropium 1 amp 05/04/17 20:37 05/04/17 21:14 Duoneb - NEB 1 amp Q4H PRN Administration SHORTNESS OF BREATH Albuterol/Ipratropium 1 amp 05/04/17 23:45 05/06/17 20:36 Duoneb - NEB 1 amp RQID [facility] Administration Atorvastatin Calcium 40 mg 05/04/17 22:00 05/06/17 21:50 Lipitor - PO 40 mg HS [facility] Administration Budesonide 1 amp 05/04/17 23:45 05/06/17 20:36 Pulmicort 0.25 Mg Nebulizer - NEB 1 amp RBID [facility] Administration Docusate Sodium 200 mg 05/04/17 22:00 05/07/17 09:09 Colace - PO 200 mg BID [facility] Administration Furosemide 60 mg 05/06/17 11:23 05/07/17 06:28 Lasix Injection - IVPUSH 60 mg BID@0600,1400 [facility] Administration Lisinopril 5 mg 05/05/17 11:45 05/07/17 09:09 Prinivil PO 5 mg DAILY [facility] Administration Magnesium Citrate 300 ml 05/07/17 10:29 Citroma - PO PRN PRN CONSTIPATION Methylprednisolone Sodium Succinate 60 mg 05/06/17 13:45 05/07/17 09:09 Solu-Medrol - IVPUSH 60 mg BID [facility] Administration Metoprolol Succinate 25 mg 05/05/17 22:00 05/07/17 09:09 Toprol Xl - PO 25 mg BID [facility] Administration Pantoprazole Sodium 40 mg 05/05/17 11:45 05/07/17 09:08 Protonix - PO 40 mg DAILY [facility] Administration Polyethylene Glycol 17 gm 05/05/17 10:00 05/07/17 09:10 Miralax (For Daily Use) - PO 17 gm DAILY [facility] Administration Polyethylene Glycol 17 gm 05/07/17 10:30 05/07/17 10:34 Miralax (For Daily Use) - PO Not Given BID [facility] Potassium Chloride 40 meq 05/04/17 20:45 05/07/17 09:09 K-Dur - PO 40 meq DAILY [facility] Administration Warfarin Sodium 1 mg 05/05/17 18:00 05/06/17 17:03 Coumadin - PO 1 mg DAILY@1800 [facility] Administration CBC, BMP 05/07/17 07:04 05/07/17 07:04 cxr: clear lungs ecg: afib, lat twis/st dep tele: afib, rate controlled mibi 04/2017: +ecg, mod ant ischemia, mod inf ischemia, lvef 30% echo 04/2017: tds, mild lve, mild-mod dec lvef, nl rv, mod lae, mild mr/tr a/p: 56 m hx chf, hld, htn, afib, presumed cad here with sob. acute syst chf: -cont lasix iv, sxs improving, monitor daily wts, chem7 -cont toprol, added ashlee as well -has +nuclear stress this past week as outpt so possibly has ischemic cardiomyopathy. will need cardiac cath when chf stable. htn: -cont current meds afib: -cont toprol for rate control, monitor on tele -cont coumadin for ac hld: -cont statin presumed cad: -as above -no anginal sxs -no acs, trops neg x3 -cont bb, ashlee, statin. no asa, on AC
--- NOTE | 2017-05-07 13:12 | PN ---
Progress Note (short form) - Note Progress Note: walking in room / O2 inplace / less dyspneic denies CP / diaphoresis Vital Signs Period Temp Pulse Resp BP Sys/Billings Pulse Ox Last 24 Hr 97.5 F-98.4 F 75-104 16-20 100-131/45-84 97-97 Intake & Output 05/04/17 05/05/17 05/06/17 05/07/17 23:59 23:59 23:59 23:59 Intake Total 190 120 920 510 Balance 190 120 920 510 Weight 267 lb 264 lb 12.8 oz 267 lb 6.4 oz 226 lb 12.8 oz neck -jvd heart S1/S2 irreg lungs decreased BS / no wheezing abd obese / soft ext no edema /+pulses CBC, BMP 05/07/17 07:04 05/07/17 07:04 INR, PTT INR 1.59 (0.82-1.09) H 05/07/17 09:31 Active Medications Albuterol/Ipratropium (Duoneb -) 1 amp NEB Q4H PRN PRN Reason: SHORTNESS OF BREATH Last Admin: 05/04/17 21:14 Dose: 1 amp Albuterol/Ipratropium (Duoneb -) 1 amp NEB RQID [facility] Last Admin: 05/06/17 20:36 Dose: 1 amp Atorvastatin Calcium (Lipitor -) 40 mg PO HS [facility] Last Admin: 05/06/17 21:50 Dose: 40 mg Budesonide (Pulmicort 0.25 Mg Nebulizer -) 1 amp NEB RBID [facility] Last Admin: 05/06/17 20:36 Dose: 1 amp Docusate Sodium (Colace -) 200 mg PO BID [facility] Last Admin: 05/07/17 09:09 Dose: 200 mg Furosemide (Lasix Injection -) 60 mg IVPUSH BID@0600,1400 [facility] Last Admin: 05/07/17 06:28 Dose: 60 mg Lisinopril (Prinivil) 5 mg PO DAILY [facility] Last Admin: 05/07/17 09:09 Dose: 5 mg Magnesium Citrate (Citroma -) 300 ml PO PRN PRN PRN Reason: CONSTIPATION Methylprednisolone Sodium Succinate (Solu-Medrol -) 60 mg IVPUSH BID [facility] Last Admin: 05/07/17 09:09 Dose: 60 mg Metoprolol Succinate (Toprol Xl -) 25 mg PO BID [facility] Last Admin: 05/07/17 09:09 Dose: 25 mg Pantoprazole Sodium (Protonix -) 40 mg PO DAILY [facility] Last Admin: 05/07/17 09:08 Dose: 40 mg Polyethylene Glycol (Miralax (For Daily Use) -) 17 gm PO DAILY [facility] Last Admin: 05/07/17 09:10 Dose: 17 gm Polyethylene Glycol (Miralax (For Daily Use) -) 17 gm PO BID [facility] Last Admin: 05/07/17 10:34 Dose: Not Given Potassium Chloride (K-Dur -) 40 meq PO DAILY [facility] Last Admin: 05/07/17 09:09 Dose: 40 meq Warfarin Sodium (Coumadin -) 1 mg PO DAILY@1800 [facility] Last Admin: 05/06/17 17:03 Dose: 1 mg 56 y/o male PMH A Fib/ CHF / HTN / HLD / Morbid obesity / admitted with inc dyspnea # Acute Systolic HF recent echo LVEF 30% mibi + ischemic changes continue Lasix IV bid daily weights todays weight incorrect ( 40lbs weight loss!) Saul i added Cardio consult appreciated arrange for Cath when stable # A fib continue BB (toprol) rate controlled continue a/c with coumadin ( not on NOAC due to cost) monitor tele inc stimulation with B-agonist for Asthma tx # Asthma exacerbated better contol will taper steroids nebulizer / O2 / steroids/ PPi # HTN controlled on current meds continue medications weight loss # obesity discussed risk / weight loss counseling nutrition consult # HLD continue statins Problem List - Problems (1) Acute exacerbation of CHF (congestive heart failure) Code(s): I50.9 - HEART FAILURE, UNSPECIFIED Qualifiers: Heart failure type: systolic Qualified Code(s): I50.23 - Acute on chronic systolic (congestive) heart failure (2) Afib Code(s): I48.91 - UNSPECIFIED ATRIAL FIBRILLATION Qualifiers: Atrial fibrillation type: chronic Qualified Code(s): I48.2 - Chronic atrial fibrillation (3) Obesities, morbid Code(s): E66.01 - MORBID (SEVERE) OBESITY DUE TO EXCESS CALORIES (4) Asthma exacerbation Code(s): J45.901 - UNSPECIFIED ASTHMA WITH (ACUTE) EXACERBATION Qualifiers: Asthma severity: mild Asthma persistence: intermittent Qualified Code(s) : J45.21 - Mild intermittent asthma with (acute) exacerbation (5) Hypertension Code(s): I10 - ESSENTIAL (PRIMARY) HYPERTENSION Qualifiers: Hypertension type: essential hypertension Qualified Code(s): I10 - Essential (primary) hypertension (6) Cardiomyopathy as manifestation of underlying disease Code(s): I43 - CARDIOMYOPATHY IN DISEASES CLASSIFIED ELSEWHERE (7) Ischemic dilated cardiomyopathy Code(s): I25.5 - ISCHEMIC CARDIOMYOPATHY; I42.0 - DILATED CARDIOMYOPATHY
[2017-05-07] MEDS: MAGNESIUM CITRATE 300 ML BOTTLE PO PRN (13:25)
[2017-05-07 15:39] LABS: INR 1.52 (0.82-1.09); PROTHROMBIN TIME (PATIENT) 17.2 SEC (9.98-11.88)
[2017-05-07] MEDS: WARFARIN NA 3 MG TABLET PO SCH (17:16)
[2017-05-07] MEDS ORDERED: WARFARIN NA 5 MG TABLET (UD) PO ONE (18:00)
[2017-05-07] MEDS: ATORVASTATIN CA 40 MG TABLET (FP) PO SCH (21:46)
[2017-05-08] MEDS: FUROSEMIDE 40 MG/4 ML INJECTABLE VIAL IVPUSH SCH ×2 (05:26→13:32)
[2017-05-08 07:12] LABS: BASO % 0.1 % (0-2.0); HEMATOCRIT 48.6 % (35.4-49); HEMOGLOBIN 16.3 GM/dL (11.7-16.9); LYMPH % 15.7 % (8-40); MCH 30.9 pg (25.7-33.7); MCHC 33.7 g/dl (32.0-35.9); MEAN CELL VOLUME 91.8 fl (80-96); MEAN PLT VOLUME 9.4 fl (7.5-11.1); MONO % 8.3 % (3.8-10.2); NEUT % 75.9 % (42.8-82.8); PLATELET COUNT 254 K/MM3 (134-434); RBC 5.29 M/mm3 (4.00-5.60); RDW 13.9 % (11.9-15.9); WHITE BLOOD COUNT 8.7 K/mm3 (4.0-10.0)
[2017-05-08 07:29] LABS: ANION GAP 5 (8-16); BLOOD UREA NITROGEN 43 mg/dL (7-18); CALCIUM 8.4 mg/dL (8.5-10.1); CHLORIDE 99 mmol/L (98-107); CO2 33 mmol/L (21-32); CREATININE 1.3 mg/dL (0.7-1.3); GLUCOSE,RANDOM 138 mg/dL (74-106); POTASSIUM 5.2 mmol/L (3.5-5.1); SODIUM 137 mmol/L (136-145)
[2017-05-08] MEDS: ALBUTEROL SO4 2.5/IPRATROPIUM 0.5 INH SOL 3 ML VIAL.NEB. NEB SCH ×4 (07:40→19:44)
[2017-05-08 08:34] LABS: INR 1.5 (0.82-1.09)
[2017-05-08] MEDS: DOCUSATE SODIUM 100 MG CAPSULE (FP) PO SCH ×2 (09:30→22:10)
[2017-05-08] MEDS: POTASSIUM CHLORIDE TABS 20 MEQ TABLET.ER (FP) PO SCH (09:31)
[2017-05-08] MEDS: LISINOPRIL 5 MG TABLET (FP) PO SCH (09:31)
[2017-05-08] MEDS: POLYETHYLENE GLYCOL 3350 119 GM BTL PO SCH ×2 (09:31→22:10)
[2017-05-08] MEDS: PANTOPRAZOLE 40 MG TABLET (FP) PO SCH (09:32)
[2017-05-08] MEDS: metoPROLOL SUCCINATE 25 MG TAB.SR.24H (FP) PO SCH (09:37)
[2017-05-08] MEDS: methylPREDNISolone NA SUCC 40 MG/1 ML VIAL IVPUSH SCH ×2 (09:37→22:10)
--- NOTE | 2017-05-08 10:49 | PN ---
Progress Note (short form) - Note Progress Note: s: no cp palps dizzy; sob a little better o: Vital Signs Period Temp Pulse Resp BP Sys/Billings Pulse Ox Last 24 Hr 97.6 F-98.2 F 67-91 18-18 107-150/56-72 98 nad no jvd irreg s1s2 no mrg cta bl nl eff aaox3 no le e/c/c abd nt nd pos bs no jaundice diaphoresis Current Medications Generic Name Dose Route Start Last Admin Trade Name Freq PRN Reason Stop Dose Admin Albuterol/Ipratropium 1 amp 05/04/17 20:37 05/04/17 21:14 Duoneb - NEB 1 amp Q4H PRN Administration SHORTNESS OF BREATH Albuterol/Ipratropium 1 amp 05/04/17 23:45 05/08/17 07:40 Duoneb - NEB 1 amp RQID [facility] Administration Atorvastatin Calcium 40 mg 05/04/17 22:00 05/07/17 21:46 Lipitor - PO 40 mg HS [facility] Administration Budesonide 1 amp 05/04/17 23:45 05/07/17 20:42 Pulmicort 0.25 Mg Nebulizer - NEB 1 amp RBID [facility] Administration Docusate Sodium 200 mg 05/04/17 22:00 05/08/17 09:30 Colace - PO 200 mg BID [facility] Administration Furosemide 60 mg 05/06/17 11:23 05/08/17 05:26 Lasix Injection - IVPUSH 60 mg BID@0600,1400 [facility] Administration Lisinopril 5 mg 05/05/17 11:45 05/08/17 09:31 Prinivil PO 5 mg DAILY [facility] Administration Magnesium Citrate 300 ml 05/07/17 10:29 05/07/17 13:25 Citroma - PO 300 ml PRN PRN Administration CONSTIPATION Methylprednisolone Sodium Succinate 40 mg 05/07/17 13:13 05/08/17 09:37 Solu-Medrol - IVPUSH 40 mg BID [facility] Administration Metoprolol Succinate 25 mg 05/05/17 22:00 05/08/17 09:37 Toprol Xl - PO 25 mg BID [facility] Administration Pantoprazole Sodium 40 mg 05/05/17 11:45 05/08/17 09:32 Protonix - PO 40 mg DAILY [facility] Administration Polyethylene Glycol 17 gm 05/07/17 10:30 05/08/17 09:31 Miralax (For Daily Use) - PO 17 gm BID [facility] Administration Potassium Chloride 40 meq 05/04/17 20:45 05/08/17 09:31 K-Dur - PO Not Given DAILY [facility] Warfarin Sodium 6 mg 05/07/17 18:00 05/07/17 17:16 Coumadin - PO 6 mg DAILY@1800 [facility] Administration CBC, BMP 05/08/17 06:35 05/08/17 06:35 cxr: clear lungs ecg: afib, lat twis/st dep tele: afib, rate controlled mibi 04/2017: +ecg, mod ant ischemia, mod inf ischemia, lvef 30% echo 04/2017: tds, mild lve, mild-mod dec lvef, nl rv, mod lae, mild mr/tr a/p: 56 m hx chf, hld, htn, afib, presumed cad here with sob. acute syst chf: -with iv lasix and iv steroids sxs improving but wt unchanged. will increase lasix 60 bid to 80 iv bid, monitor daily wts, chem7 -cont toprol, added ashlee as well -has +nuclear stress this past week as outpt so possibly has ischemic cardiomyopathy. will need cardiac cath when chf stable. htn: -cont current meds afib: -cont toprol for rate control, monitor on tele -cont coumadin for ac hld: -cont statin presumed cad: -as above -no anginal sxs -no acs, trops neg x3 -cont bb, ashlee, statin. no asa, on AC
--- NOTE | 2017-05-08 11:28 | PN ---
Progress Note (short form) - Note Progress Note: sleeping -states more comfortable / O2 inplace / less dyspneic denies CP / diaphoresis Vital Signs Period Temp Pulse Resp BP Sys/Billings Pulse Ox Last 24 Hr 97.6 F-98.2 F 67-91 -18 107-150/56-72 98 Intake & Output 05/05/17 05/06/17 05/07/17 05/08/17 23:59 23:59 23:59 23:59 Intake Total 556 094 7786 270 Balance 740 595 4548 270 Weight 264 lb 12.8 oz 267 lb 6.4 oz 266 lb 266 lb 2 oz neck -jvd heart S1/S2 irreg lungs decreased BS / no wheezing abd obese / soft ext no edema /+pulses CBC, BMP 05/08/17 06:35 05/08/17 06:35 INR, PTT INR 1.50 (0.82-1.09) H 05/08/17 07:55 Active Medications Albuterol/Ipratropium (Duoneb -) 1 amp NEB Q4H PRN PRN Reason: SHORTNESS OF BREATH Last Admin: 05/04/17 21:14 Dose: 1 amp Albuterol/Ipratropium (Duoneb -) 1 amp NEB RQID [facility] Last Admin: 05/08/17 07:40 Dose: 1 amp Atorvastatin Calcium (Lipitor -) 40 mg PO HS [facility] Last Admin: 05/07/17 21:46 Dose: 40 mg Budesonide (Pulmicort 0.25 Mg Nebulizer -) 1 amp NEB RBID [facility] Last Admin: 05/07/17 20:42 Dose: 1 amp Docusate Sodium (Colace -) 200 mg PO BID [facility] Last Admin: 05/08/17 09:30 Dose: 200 mg Furosemide (Lasix Injection -) 80 mg IVPUSH BID@0600,1400 [facility] Lisinopril (Prinivil) 5 mg PO DAILY [facility] Last Admin: 05/08/17 09:31 Dose: 5 mg Magnesium Citrate (Citroma -) 300 ml PO PRN PRN PRN Reason: CONSTIPATION Last Admin: 05/07/17 13:25 Dose: 300 ml Methylprednisolone Sodium Succinate (Solu-Medrol -) 40 mg IVPUSH BID [facility] Last Admin: 05/08/17 09:37 Dose: 40 mg Metoprolol Succinate (Toprol Xl -) 25 mg PO BID [facility] Last Admin: 05/08/17 09:37 Dose: 25 mg Pantoprazole Sodium (Protonix -) 40 mg PO DAILY [facility] Last Admin: 05/08/17 09:32 Dose: 40 mg Polyethylene Glycol (Miralax (For Daily Use) -) 17 gm PO BID [facility] Last Admin: 05/08/17 09:31 Dose: 17 gm Potassium Chloride (K-Dur -) 40 meq PO DAILY [facility] Last Admin: 05/08/17 09:31 Dose: Not Given Warfarin Sodium (Coumadin -) 6 mg PO DAILY@1800 [facility] Last Admin: 05/07/17 17:16 Dose: 6 mg 56 y/o male PMH A Fib/ CHF / HTN / HLD / Morbid obesity / admitted with inc dyspnea # Acute Systolic HF recent echo LVEF 30% mibi + ischemic changes continue Lasix IV bid increased today to 80 bid Saul i added Cardio consult appreciated arrange for Cath when stable # A fib continue BB (toprol) rate controlled continue a/c with coumadin ( not on NOAC due to cost) monitor tele inc stimulation with B-agonist for Asthma tx # Asthma exacerbated better contol will continue to taper steroids nebulizer / O2 / steroids/ PPi # HTN controlled on current meds continue medications weight loss # obesity discussed risk / weight loss counseling nutrition consult # HLD continue statins Problem List - Problems (1) Acute exacerbation of CHF (congestive heart failure) Code(s): I50.9 - HEART FAILURE, UNSPECIFIED Qualifiers: Heart failure type: systolic Qualified Code(s): I50.23 - Acute on chronic systolic (congestive) heart failure (2) Afib Code(s): I48.91 - UNSPECIFIED ATRIAL FIBRILLATION Qualifiers: Atrial fibrillation type: chronic Qualified Code(s): I48.2 - Chronic atrial fibrillation (3) Obesities, morbid Code(s): E66.01 - MORBID (SEVERE) OBESITY DUE TO EXCESS CALORIES (4) Asthma exacerbation Code(s): J45.901 - UNSPECIFIED ASTHMA WITH (ACUTE) EXACERBATION Qualifiers: Asthma severity: mild Asthma persistence: intermittent Qualified Code(s) : J45.21 - Mild intermittent asthma with (acute) exacerbation (5) Hypertension Code(s): I10 - ESSENTIAL (PRIMARY) HYPERTENSION Qualifiers: Hypertension type: essential hypertension Qualified Code(s): I10 - Essential (primary) hypertension (6) Cardiomyopathy as manifestation of underlying disease Code(s): I43 - CARDIOMYOPATHY IN DISEASES CLASSIFIED ELSEWHERE (7) Ischemic dilated cardiomyopathy Code(s): I25.5 - ISCHEMIC CARDIOMYOPATHY; I42.0 - DILATED CARDIOMYOPATHY
[2017-05-08] MEDS: BUDESONIDE 0.25 MG/2ML INH SUSP VIAL NEB SCH (11:40)
[2017-05-08] MEDS ORDERED: metoPROLOL SUCCINATE 25 MG TAB.SR.24H (FP) PO ONE (15:45)
[2017-05-08 17:15] LABS: INR 1.67 (0.82-1.09); PROTHROMBIN TIME (PATIENT) 18.9 SEC (9.98-11.88)
[2017-05-08] MEDS: WARFARIN NA 3 MG TABLET PO SCH (17:27)
[2017-05-08] MEDS ORDERED: PT OWN MED DRAWER 7, Y5N ONE (21:41)
[2017-05-08] MEDS: ATORVASTATIN CA 40 MG TABLET (FP) PO SCH (22:10)
[2017-05-09] MEDS: FUROSEMIDE 40 MG/4 ML INJECTABLE VIAL IVPUSH SCH ×2 (06:01→14:17)
[2017-05-09 06:22] LABS: BASO % 0.1 % (0-2.0); HEMATOCRIT 46.3 % (35.4-49); HEMOGLOBIN 15.5 GM/dL (11.7-16.9); LYMPH % 11.6 % (8-40); MCH 30.4 pg (25.7-33.7); MCHC 33.4 g/dl (32.0-35.9); MEAN CELL VOLUME 90.8 fl (80-96); MEAN PLT VOLUME 9.2 fl (7.5-11.1); MONO % 6.2 % (3.8-10.2); NEUT % 82.1 % (42.8-82.8); PLATELET COUNT 224 K/MM3 (134-434); RDW 14.1 % (11.9-15.9)
[2017-05-09 07:02] LABS: CHLORIDE 99 mmol/L (98-107); POTASSIUM 4.6 mmol/L (3.5-5.1); SODIUM 138 mmol/L (136-145)
[2017-05-09 07:06] LABS: ANION GAP 8 (8-16); BLOOD UREA NITROGEN 40 mg/dL (7-18); CO2 31 mmol/L (21-32); CREATININE 1.2 mg/dL (0.7-1.3); GLUCOSE,RANDOM 153 mg/dL (74-106)
[2017-05-09] MEDS: BUDESONIDE 0.25 MG/2ML INH SUSP VIAL NEB SCH ×3 (08:35→20:28)
[2017-05-09] MEDS: ALBUTEROL SO4 2.5/IPRATROPIUM 0.5 INH SOL 3 ML VIAL.NEB. NEB SCH ×4 (08:45→20:27)
[2017-05-09] MEDS: POLYETHYLENE GLYCOL 3350 119 GM BTL PO SCH ×2 (09:01→21:44)
[2017-05-09] MEDS: methylPREDNISolone NA SUCC 40 MG/1 ML VIAL IVPUSH SCH ×2 (09:01→21:45)
[2017-05-09] MEDS: PANTOPRAZOLE 40 MG TABLET (FP) PO SCH (09:01)
[2017-05-09] MEDS: DOCUSATE SODIUM 100 MG CAPSULE (FP) PO SCH ×2 (09:01→21:45)
[2017-05-09] MEDS: LISINOPRIL 5 MG TABLET (FP) PO SCH (09:01)
--- NOTE | 2017-05-09 11:14 | PN ---
Progress Note (short form) - Note Progress Note: CC: Chf s: no cp palps dizzy; sob improved. lasix increased from 60 IV bid to 80 IV bid yesterday afternoon. toprol increased from 25 bid to [address] bid [address] Dandy montes: Current Medications Albuterol/Ipratropium (Duoneb -) 1 amp NEB Q4H PRN PRN Reason: SHORTNESS OF BREATH Last Admin: 05/04/17 21:14 Dose: 1 amp Albuterol/Ipratropium (Duoneb -) 1 amp NEB RQID [facility] Last Admin: 05/09/17 08:45 Dose: 1 amp Atorvastatin Calcium (Lipitor -) 40 mg PO HS [facility] Last Admin: 05/08/17 22:10 Dose: 40 mg Budesonide (Pulmicort 0.25 Mg Nebulizer -) 1 amp NEB RBID [facility] Last Admin: 05/09/17 08:45 Dose: 1 amp Docusate Sodium (Colace -) 200 mg PO BID [facility] Last Admin: 05/09/17 09:01 Dose: 200 mg Furosemide (Lasix Injection -) 80 mg IVPUSH BID@0600,1400 [facility] Last Admin: 05/09/17 06:01 Dose: 80 mg Lisinopril (Prinivil) 5 mg PO DAILY [facility] Last Admin: 05/09/17 09:01 Dose: 5 mg Magnesium Citrate (Citroma -) 300 ml PO PRN PRN PRN Reason: CONSTIPATION Last Admin: 05/07/17 13:25 Dose: 300 ml Methylprednisolone Sodium Succinate (Solu-Medrol -) 40 mg IVPUSH BID [facility] Last Admin: 05/09/17 09:01 Dose: 40 mg Metoprolol Succinate (Toprol Xl -) 50 mg PO BID [facility] Last Admin: 05/09/17 09:01 Dose: 50 mg Pantoprazole Sodium (Protonix -) 40 mg PO DAILY [facility] Last Admin: 05/09/17 09:01 Dose: 40 mg Polyethylene Glycol (Miralax (For Daily Use) -) 17 gm PO BID [facility] Last Admin: 05/09/17 09:01 Dose: Not Given Warfarin Sodium (Coumadin -) 6 mg PO DAILY@1800 [facility] Last Admin: 05/08/17 17:27 Dose: 6 mg Vital Signs - 24 hr 05/08/17 05/08/17 05/08/17 14:00 18:00 21:00 Temperature 98.3 F 98.2 F Pulse Rate 70 86 Respiratory 20 18 Rate Blood Pressure 113/70 130/51 O2 Sat by Pulse 96 Oximetry (%) 05/08/17 05/09/17 05/09/17 22:00 02:00 06:00 Temperature 97.8 F 97.9 F 97.6 F Pulse Rate 75 74 62 Respiratory 16 20 16 Rate Blood Pressure 114/77 134/82 108/64 O2 Sat by Pulse Oximetry (%) 05/09/17 05/09/17 07:59 08:00 Temperature 98.1 F Pulse Rate 75 Respiratory 18 18 Rate Blood Pressure 143/71 O2 Sat by Pulse 95 Oximetry (%) Intake & Output 05/07/17 05/08/17 05/09/17 05/10/17 07:59 07:59 07:59 07:59 Intake Total 1180 1080 340 Balance 1180 1080 340 Weight 266 lb 12.8 oz 266 lb 2 oz 264 lb 6.4 oz nad, calm jvd tds irreg s1s2 no mrg cta bl nl eff aaox3 no le e/c/c abd nt nd pos bs no jaundice diaphoresis CBC, BMP 05/09/17 06:05 05/09/17 06:05 Laboratory Tests 05/08/17 05/08/17 05/09/17 06:35 15:35 06:05 INR 1.67 H Magnesium 3.0 H D TSH 0.22 L cxr: clear lungs ecg: afib, lat twis/st dep tele: afib, rate controlled mibi 04/2017: +ecg, mod ant ischemia, mod inf ischemia, lvef 30% echo 04/2017: tds, mild lve, mild-mod dec lvef, nl rv, mod lae, mild mr/tr a/p: 56 m hx chf, hld, htn, afib, presumed cad here with sob. acute syst chf: -with iv lasix and iv steroids sxs improving but wt unchanged. increased lasix 60 bid to 80 iv bid 05/08, with improvement in diuresis. weight now trending down. bmp stable 05/09, con't same regimen. - monitor daily wts, chem7 -cont toprol (last uptitrated 05/08), added ashlee as well -patient states he has known systolic dysfunction. ? prior work up. Now with +nuclear stress this past week as outpt so possibly has ischemic cardiomyopathy. will need cardiac cath when chf stable. will need to clarify timing of cath so that coumadin can be held. - mgm't of asthma per pmd, remains on IV steroids. htn: -cont current meds afib: -cont toprol for rate control, monitor on tele -cont coumadin for ac - mgm't of thyroid abnormalities per pmd. hld: -cont statin presumed cad: -as above -no anginal sxs -no acs, trops neg x3 -cont bb, ashlee, statin. no asa, on AC
[2017-05-09] MEDS: MAGNESIUM CITRATE 300 ML BOTTLE PO PRN (14:49)
[2017-05-09 16:39] LABS: INR 1.97 (0.82-1.09); PROTHROMBIN TIME (PATIENT) 22.3 SEC (9.98-11.88)
[2017-05-09] MEDS: WARFARIN NA 3 MG TABLET PO SCH (17:37)
[2017-05-09] MEDS ORDERED: PT OWN MED DRAWER 7, Y5N ONE (20:31)
[2017-05-09] MEDS: ATORVASTATIN CA 40 MG TABLET (FP) PO SCH (21:45)
--- NOTE | 2017-05-09 22:16 | PN ---
Progress Note (short form) - Note Progress Note: sleeping -states more comfortable / O2 inplace / less dyspneic denies CP / diaphoresis Vital Signs Period Temp Pulse Resp BP Sys/Billings Pulse Ox Last 24 Hr 97.6 F-98.2 F 67-91 18-18 107-150/56-72 98 Intake & Output 05/06/17 05/07/17 05/08/17 05/09/17 23:59 23:59 23:59 23:59 Intake Total 920 1080 490 660 Output Total 500 Balance 920 1080 490 160 Weight 267 lb 6.4 oz 266 lb 266 lb 2 oz 264 lb 6.4 oz neck -jvd heart S1/S2 irreg lungs decreased BS / no wheezing abd obese / soft ext no edema /+pulses CBC, BMP 05/09/17 06:05 05/09/17 06:05 INR, PTT INR 1.97 (0.82-1.09) H 05/09/17 14:45 Active Medications Albuterol/Ipratropium (Duoneb -) 1 amp NEB RQID [facility] Last Admin: 05/09/17 20:27 Dose: 1 amp Atorvastatin Calcium (Lipitor -) 40 mg PO HS [facility] Last Admin: 05/09/17 21:45 Dose: 40 mg Budesonide (Pulmicort 0.25 Mg Nebulizer -) 1 amp NEB RBID [facility] Last Admin: 05/09/17 20:28 Dose: 1 amp Docusate Sodium (Colace -) 200 mg PO BID [facility] Last Admin: 05/09/17 21:45 Dose: 200 mg Furosemide (Lasix Injection -) 80 mg IVPUSH BID@0600,1400 [facility] Last Admin: 05/09/17 14:17 Dose: 80 mg Lisinopril (Prinivil) 5 mg PO DAILY [facility] Last Admin: 05/09/17 09:01 Dose: 5 mg Methylprednisolone Sodium Succinate (Solu-Medrol -) 40 mg IVPUSH BID [facility] Last Admin: 05/09/17 21:45 Dose: 40 mg Metoprolol Succinate (Toprol Xl -) 50 mg PO BID [facility] Last Admin: 05/09/17 21:45 Dose: 50 mg Pantoprazole Sodium (Protonix -) 40 mg PO DAILY [facility] Last Admin: 05/09/17 09:01 Dose: 40 mg Polyethylene Glycol (Miralax (For Daily Use) -) 17 gm PO BID [facility] Last Admin: 05/09/17 21:44 Dose: Not Given Warfarin Sodium (Coumadin -) 6 mg PO DAILY@1800 [facility] Last Admin: 05/09/17 17:37 Dose: 6 mg 56 y/o male PMH A Fib/ CHF / HTN / HLD / Morbid obesity / admitted with inc dyspnea # Acute Systolic HF recent echo LVEF 30% mibi + ischemic changes continue Lasix IV bid increased today to 80 bid Saul i added Cardio consult appreciated arrange for Cath when stable # A fib continue BB (toprol) rate controlled continue a/c with coumadin ( not on NOAC due to cost) monitor tele inc stimulation with B-agonist for Asthma tx # Asthma exacerbated better contol will continue to taper steroids nebulizer / O2 / steroids/ PPi # HTN controlled on current meds continue medications weight loss # obesity discussed risk / weight loss counseling nutrition consult # HLD continue statins Problem List - Problems (1) Acute exacerbation of CHF (congestive heart failure) Code(s): I50.9 - HEART FAILURE, UNSPECIFIED Qualifiers: Heart failure type: systolic Qualified Code(s): I50.23 - Acute on chronic systolic (congestive) heart failure (2) Afib Code(s): I48.91 - UNSPECIFIED ATRIAL FIBRILLATION Qualifiers: Atrial fibrillation type: chronic Qualified Code(s): I48.2 - Chronic atrial fibrillation (3) Obesities, morbid Code(s): E66.01 - MORBID (SEVERE) OBESITY DUE TO EXCESS CALORIES (4) Asthma exacerbation Code(s): J45.901 - UNSPECIFIED ASTHMA WITH (ACUTE) EXACERBATION Qualifiers: Asthma severity: mild Asthma persistence: intermittent Qualified Code(s) : J45.21 - Mild intermittent asthma with (acute) exacerbation (5) Hypertension Code(s): I10 - ESSENTIAL (PRIMARY) HYPERTENSION Qualifiers: Hypertension type: essential hypertension Qualified Code(s): I10 - Essential (primary) hypertension (6) Cardiomyopathy as manifestation of underlying disease Code(s): I43 - CARDIOMYOPATHY IN DISEASES CLASSIFIED ELSEWHERE (7) Ischemic dilated cardiomyopathy Code(s): I25.5 - ISCHEMIC CARDIOMYOPATHY; I42.0 - DILATED CARDIOMYOPATHY
[2017-05-10] MEDS: FUROSEMIDE 40 MG/4 ML INJECTABLE VIAL IVPUSH SCH ×2 (05:35→14:12)
[2017-05-10 08:16] LABS: ANION GAP 8 (8-16); BLOOD UREA NITROGEN 47 mg/dL (7-18); CALCIUM 7.6 mg/dL (8.5-10.1); CHLORIDE 100 mmol/L (98-107); CO2 29 mmol/L (21-32); CREATININE 1.2 mg/dL (0.7-1.3); GLUCOSE,RANDOM 133 mg/dL (74-106); POTASSIUM 4.4 mmol/L (3.5-5.1); SODIUM 137 mmol/L (136-145)
[2017-05-10] MEDS: BUDESONIDE 0.25 MG/2ML INH SUSP VIAL NEB SCH ×2 (08:25→21:21)
[2017-05-10] MEDS: PANTOPRAZOLE 40 MG TABLET (FP) PO SCH (09:08)
[2017-05-10] MEDS: methylPREDNISolone NA SUCC 40 MG/1 ML VIAL IVPUSH SCH (09:08)
[2017-05-10] MEDS: DOCUSATE SODIUM 100 MG CAPSULE (FP) PO SCH ×2 (09:08→21:48)
[2017-05-10] MEDS: LISINOPRIL 5 MG TABLET (FP) PO SCH (09:09)
[2017-05-10] MEDS: POLYETHYLENE GLYCOL 3350 119 GM BTL PO SCH ×2 (09:10→21:53)
--- NOTE | 2017-05-10 10:29 | PN ---
Progress Note (short form) - Note Progress Note: s: no cp palps dizzy; sob a little better, getting closer to baseline o: Vital Signs Period Temp Pulse Resp BP Sys/Billings Pulse Ox Last 24 Hr 97.3 F-98.2 F 63-89 16-20 111-132/59-82 98-100 nad no jvd irreg s1s2 no mrg cta bl nl eff aaox3 no le e/c/c abd nt nd pos bs no jaundice diaphoresis Current Medications Generic Name Dose Route Start Last Admin Trade Name Freq PRN Reason Stop Dose Admin Atorvastatin Calcium 40 mg 05/04/17 22:00 05/09/17 21:45 Lipitor - PO 40 mg HS [facility] Administration Budesonide 1 amp 05/04/17 23:45 05/09/17 20:28 Pulmicort 0.25 Mg Nebulizer - NEB 1 amp RBID [facility] Administration Docusate Sodium 200 mg 05/04/17 22:00 05/10/17 09:08 Colace - PO 200 mg BID [facility] Administration Furosemide 80 mg 05/08/17 14:00 05/10/17 05:35 Lasix Injection - IVPUSH 80 mg BID@0600,1400 [facility] Administration Lisinopril 5 mg 05/05/17 11:45 05/10/17 09:09 Prinivil PO 5 mg DAILY [facility] Administration Methylprednisolone Sodium Succinate 40 mg 05/07/17 13:13 05/10/17 09:08 Solu-Medrol - IVPUSH 40 mg BID [facility] Administration Metoprolol Succinate 50 mg 05/08/17 22:00 05/10/17 09:08 Toprol Xl - PO 50 mg BID [facility] Administration Pantoprazole Sodium 40 mg 05/05/17 11:45 05/10/17 09:08 Protonix - PO 40 mg DAILY [facility] Administration Polyethylene Glycol 17 gm 05/07/17 10:30 05/10/17 09:10 Miralax (For Daily Use) - PO Not Given BID [facility] Warfarin Sodium 6 mg 05/07/17 18:00 05/09/17 17:37 Coumadin - PO 6 mg DAILY@1800 [facility] Administration CBC, BMP 05/09/17 06:05 05/10/17 05:05 cxr: clear lungs ecg: afib, lat twis/st dep tele: afib, rate controlled mibi 04/2017: +ecg, mod ant ischemia, mod inf ischemia, lvef 30% echo 04/2017: tds, mild lve, mild-mod dec lvef, nl rv, mod lae, mild mr/tr a/p: 56 m hx chf, hld, htn, afib, presumed cad here with sob. acute syst chf: -with iv lasix and iv steroids sxs improving. cont lasix 80 iv bid, monitor daily wts, chem7 -cont toprol, added ashlee as well -has +nuclear stress this past week as outpt so possibly has ischemic cardiomyopathy. will need cardiac cath when chf stable. htn: -cont current meds afib: -cont toprol for rate control, monitor on tele -cont coumadin for ac hld: -cont statin presumed cad: -as above -no anginal sxs -no acs, trops neg x3 -cont bb, ashlee, statin. no asa, on AC
[2017-05-10 15:55] LABS: INR 2.6 (0.82-1.09); PROTHROMBIN TIME (PATIENT) 29.4 SEC (9.98-11.88)
[2017-05-10] MEDS: WARFARIN NA 3 MG TABLET PO SCH (17:40)
--- NOTE | 2017-05-10 18:41 | PN ---
Progress Note (short form) - Note Progress Note: sleeping -states more comfortable / O2 inplace / less dyspneic denies CP / diaphoresis able to ambulate with less dyspnea Vital Signs Period Temp Pulse Resp BP Sys/Billings Pulse Ox Last 24 Hr 97.4 F-98.1 F 66-89 16-20 111-126/59-82 98-100 Intake & Output 05/07/17 05/08/17 05/09/17 05/10/17 23:59 23:59 23:59 23:59 Intake Total 9176 698 9920 20 Output Total 800 2230 Balance 1080 490 550 -2210 Weight 266 lb 266 lb 2 oz 264 lb 6.4 oz 265 lb 3.2 oz neck -jvd heart S1/S2 irreg lungs decreased BS / no wheezing abd obese / soft ext no edema /+pulses CBC, BMP 05/09/17 06:05 05/10/17 05:05 INR, PTT INR 2.60 (0.82-1.09) H D 05/10/17 14:30 Active Medications Albuterol/Ipratropium (Duoneb -) 1 amp NEB RQID [facility] Last Admin: 05/09/17 20:27 Dose: 1 amp Atorvastatin Calcium (Lipitor -) 40 mg PO HS [facility] Last Admin: 05/09/17 21:45 Dose: 40 mg Budesonide (Pulmicort 0.25 Mg Nebulizer -) 1 amp NEB RBID [facility] Last Admin: 05/09/17 20:28 Dose: 1 amp Docusate Sodium (Colace -) 200 mg PO BID [facility] Last Admin: 05/09/17 21:45 Dose: 200 mg Furosemide (Lasix Injection -) 80 mg IVPUSH BID@0600,1400 [facility] Last Admin: 05/09/17 14:17 Dose: 80 mg Lisinopril (Prinivil) 5 mg PO DAILY [facility] Last Admin: 05/09/17 09:01 Dose: 5 mg Methylprednisolone Sodium Succinate (Solu-Medrol -) 40 mg IVPUSH BID [facility] Last Admin: 05/09/17 21:45 Dose: 40 mg Metoprolol Succinate (Toprol Xl -) 50 mg PO BID [facility] Last Admin: 05/09/17 21:45 Dose: 50 mg Pantoprazole Sodium (Protonix -) 40 mg PO DAILY [facility] Last Admin: 05/09/17 09:01 Dose: 40 mg Polyethylene Glycol (Miralax (For Daily Use) -) 17 gm PO BID [facility] Last Admin: 05/09/17 21:44 Dose: Not Given Warfarin Sodium (Coumadin -) 6 mg PO DAILY@1800 [facility] Last Admin: 05/09/17 17:37 Dose: 6 mg 56 y/o male PMH A Fib/ CHF / HTN / HLD / Morbid obesity / admitted with inc dyspnea # Acute Systolic HF recent echo LVEF 30% mibi + ischemic changes continue Lasix IV bid increased today to 80 bid Saul i added Cardio consult appreciated Will arrange for Cath Dr Neli See , [facility] # A fib continue BB (toprol) rate controlled continue a/c with coumadin ( not on NOAC due to cost) monitor tele inc stimulation with B-agonist for Asthma tx # Asthma exacerbated better contol will continue to taper steroids to off nebulizer / O2 / steroids/ PPi # HTN controlled on current meds continue medications weight loss # obesity discussed risk / weight loss counseling nutrition consult # HLD continue statins Problem List - Problems (1) Acute exacerbation of CHF (congestive heart failure) Code(s): I50.9 - HEART FAILURE, UNSPECIFIED Qualifiers: Heart failure type: systolic Qualified Code(s): I50.23 - Acute on chronic systolic (congestive) heart failure (2) Afib Code(s): I48.91 - UNSPECIFIED ATRIAL FIBRILLATION Qualifiers: Atrial fibrillation type: chronic Qualified Code(s): I48.2 - Chronic atrial fibrillation (3) Obesities, morbid Code(s): E66.01 - MORBID (SEVERE) OBESITY DUE TO EXCESS CALORIES (4) Asthma exacerbation Code(s): J45.901 - UNSPECIFIED ASTHMA WITH (ACUTE) EXACERBATION Qualifiers: Asthma severity: mild Asthma persistence: intermittent Qualified Code(s) : J45.21 - Mild intermittent asthma with (acute) exacerbation (5) Hypertension Code(s): I10 - ESSENTIAL (PRIMARY) HYPERTENSION Qualifiers: Hypertension type: essential hypertension Qualified Code(s): I10 - Essential (primary) hypertension (6) Cardiomyopathy as manifestation of underlying disease Code(s): I43 - CARDIOMYOPATHY IN DISEASES CLASSIFIED ELSEWHERE (7) Ischemic dilated cardiomyopathy Code(s): I25.5 - ISCHEMIC CARDIOMYOPATHY; I42.0 - DILATED CARDIOMYOPATHY
[2017-05-10] MEDS ORDERED: MAGNESIUM CITRATE 300 ML BOTTLE PO PRN (18:42)
[2017-05-10] MEDS ORDERED: PT OWN MED DRAWER 7, Y5N ONE (21:14)
[2017-05-10] MEDS: ATORVASTATIN CA 40 MG TABLET (FP) PO SCH (21:48)
[2017-05-11] MEDS: FUROSEMIDE 40 MG/4 ML INJECTABLE VIAL IVPUSH SCH ×2 (05:56→13:20)
[2017-05-11] MEDS: BUDESONIDE 0.25 MG/2ML INH SUSP VIAL NEB SCH (07:58)
[2017-05-11] MEDS: PANTOPRAZOLE 40 MG TABLET (FP) PO SCH (09:45)
[2017-05-11] MEDS: DOCUSATE SODIUM 100 MG CAPSULE (FP) PO SCH (09:45)
[2017-05-11] MEDS: LISINOPRIL 5 MG TABLET (FP) PO SCH (09:45)
[2017-05-11] MEDS: POLYETHYLENE GLYCOL 3350 119 GM BTL PO SCH (09:51)
--- NOTE | 2017-05-11 11:07 | PN ---
Progress Note (short form) - Note Progress Note: s: no cp palps dizzy; sob almost resolved o: Vital Signs Period Temp Pulse Resp BP Sys/Billings Pulse Ox Last 24 Hr 97.6 F-98.6 F 45-76 17-20 101-141/52-70 97-97 nad no jvd irreg s1s2 no mrg cta bl nl eff aaox3 no le e/c/c abd nt nd pos bs no jaundice diaphoresis Current Medications Generic Name Dose Route Start Last Admin Trade Name Freq PRN Reason Stop Dose Admin Atorvastatin Calcium 40 mg 05/04/17 22:00 05/10/17 21:48 Lipitor - PO 40 mg HS [facility] Administration Budesonide 1 amp 05/04/17 23:45 05/11/17 07:58 Pulmicort 0.25 Mg Nebulizer - NEB 1 amp RBID [facility] Administration Docusate Sodium 200 mg 05/04/17 22:00 05/11/17 09:45 Colace - PO 200 mg BID [facility] Administration Furosemide 80 mg 05/08/17 14:00 05/11/17 05:56 Lasix Injection - IVPUSH 80 mg BID@0600,1400 [facility] Administration Lisinopril 5 mg 05/05/17 11:45 05/11/17 09:45 Prinivil PO 5 mg DAILY [facility] Administration Magnesium Citrate 300 ml 05/10/17 18:42 Citroma - PO Q48H PRN CONSTIPATION Metoprolol Succinate 50 mg 05/08/17 22:00 05/11/17 09:45 Toprol Xl - PO 50 mg BID [facility] Administration Pantoprazole Sodium 40 mg 05/05/17 11:45 05/11/17 09:45 Protonix - PO 40 mg DAILY [facility] Administration Polyethylene Glycol 17 gm 05/07/17 10:30 05/11/17 09:51 Miralax (For Daily Use) - PO 17 gm BID [facility] Administration CBC, BMP 05/09/17 06:05 05/10/17 05:05 cxr: clear lungs ecg: afib, lat twis/st dep tele: afib, rate controlled mibi 04/2017: +ecg, mod ant ischemia, mod inf ischemia, lvef 30% echo 04/2017: tds, mild lve, mild-mod dec lvef, nl rv, mod lae, mild mr/tr a/p: 56 m hx chf, hld, htn, afib, presumed cad here with sob. acute syst chf: -with iv lasix and iv steroids sxs improving. cont lasix 80 iv bid, monitor daily wts, chem7 -cont toprol, added ashlee as well -has +nuclear stress this past week as outpt so possibly has ischemic cardiomyopathy. will need cardiac cath, now arranged with [facility], awaiting transfer. htn: -cont current meds afib: -cont toprol for rate control, monitor on tele -cont coumadin for ac hld: -cont statin presumed cad: -as above -no anginal sxs -no acs, trops neg x3 -cont bb, ashlee, statin. no asa, on AC
--- NOTE | 2017-05-11 14:29 | PN ---
Progress Note (short form) - Note Progress Note: Pt found sitting on edge of bed with nasal O2 in place. FACILITATOR notified pt that he is being transferred to [facility] today for Cardiac cath. Vital Signs Period Temp Pulse Resp BP Sys/Billings Pulse Ox Last 24 Hr 97.6 F-98.6 F 45-76 18-20 101-141/52-70 97-97 HEENT- Normocephalic Neck- Supple Lungs- CTAB Heart- RRR Abd- soft, BS x4, NT Ext- No LE edema CBC, BMP 05/09/17 06:05 05/10/17 05:05 Active Medications Atorvastatin Calcium (Lipitor -) 40 mg PO HS [facility] Last Admin: 05/10/17 21:48 Dose: 40 mg Budesonide (Pulmicort 0.25 Mg Nebulizer -) 1 amp NEB BID [facility] Last Admin: 05/11/17 07:58 Dose: 1 amp Docusate Sodium (Colace -) 200 mg PO BID [facility] Last Admin: 05/11/17 09:45 Dose: 200 mg Furosemide (Lasix Injection -) 80 mg IVPUSH BID@0600,1400 [facility] Last Admin: 05/11/17 13:20 Dose: 80 mg Lisinopril (Prinivil) 5 mg PO DAILY [facility] Last Admin: 05/11/17 09:45 Dose: 5 mg Magnesium Citrate (Citroma -) 300 ml PO Q48H PRN PRN Reason: CONSTIPATION Metoprolol Succinate (Toprol Xl -) 50 mg PO BID [facility] Last Admin: 05/11/17 09:45 Dose: 50 mg Pantoprazole Sodium (Protonix -) 40 mg PO DAILY [facility] Last Admin: 05/11/17 09:45 Dose: 40 mg Polyethylene Glycol (Miralax (For Daily Use) -) 17 gm PO BID [facility] Last Admin: 05/11/17 09:51 Dose: 17 gm 56 y/o male PMH A Fib/ CHF / HTN / HLD / Morbid obesity / admitted with inc dyspnea # Acute Systolic HF recent echo LVEF 30% continue Lasix IV bid Being transferred for Cardiac Cath Dr Neli See , [facility] today # A fib continue BB (toprol) for rate control continue a/c with coumadin ( not on NOAC due to cost) inc stimulation with B-agonist for Asthma tx # Asthma Continue nebulizer / O2 / PPI # HTN continue Lisinopril, Lasix and Metoprolol weight loss # obesity discussed risk / weight loss counseling nutrition consult # HLD continue Atorvastatin Problem List - Problems (1) Acute exacerbation of CHF (congestive heart failure) Code(s): I50.9 - HEART FAILURE, UNSPECIFIED Qualifiers: Heart failure type: systolic Qualified Code(s): I50.23 - Acute on chronic systolic (congestive) heart failure (2) Afib Code(s): I48.91 - UNSPECIFIED ATRIAL FIBRILLATION Qualifiers: Atrial fibrillation type: chronic Qualified Code(s): I48.2 - Chronic atrial fibrillation (3) Obesities, morbid Code(s): E66.01 - MORBID (SEVERE) OBESITY DUE TO EXCESS CALORIES (4) Asthma exacerbation Code(s): J45.901 - UNSPECIFIED ASTHMA WITH (ACUTE) EXACERBATION Qualifiers: Asthma severity: mild Asthma persistence: intermittent Qualified Code(s) : J45.21 - Mild intermittent asthma with (acute) exacerbation (5) Hypertension Code(s): I10 - ESSENTIAL (PRIMARY) HYPERTENSION Qualifiers: Hypertension type: essential hypertension Qualified Code(s): I10 - Essential (primary) hypertension (6) Cardiomyopathy as manifestation of underlying disease Code(s): I43 - CARDIOMYOPATHY IN DISEASES CLASSIFIED ELSEWHERE (7) Ischemic dilated cardiomyopathy Code(s): I25.5 - ISCHEMIC CARDIOMYOPATHY; I42.0 - DILATED CARDIOMYOPATHY Problem List - Problems (1) Acute exacerbation of CHF (congestive heart failure) Code(s): I50.9 - HEART FAILURE, UNSPECIFIED Qualifiers: Heart failure type: systolic Qualified Code(s): I50.23 - Acute on chronic systolic (congestive) heart failure (2) Afib Code(s): I48.91 - UNSPECIFIED ATRIAL FIBRILLATION Qualifiers: Atrial fibrillation type: chronic Qualified Code(s): I48.2 - Chronic atrial fibrillation (3) Obesities, morbid Code(s): E66.01 - MORBID (SEVERE) OBESITY DUE TO EXCESS CALORIES (4) Asthma exacerbation Code(s): J45.901 - UNSPECIFIED ASTHMA WITH (ACUTE) EXACERBATION Qualifiers: Asthma severity: mild Asthma persistence: intermittent Qualified Code(s) : J45.21 - Mild intermittent asthma with (acute) exacerbation (5) Hypertension Code(s): I10 - ESSENTIAL (PRIMARY) HYPERTENSION Qualifiers: Hypertension type: essential hypertension Qualified Code(s): I10 - Essential (primary) hypertension (6) Cardiomyopathy as manifestation of underlying disease Code(s): I43 - CARDIOMYOPATHY IN DISEASES CLASSIFIED ELSEWHERE (7) Ischemic dilated cardiomyopathy Code(s): I25.5 - ISCHEMIC CARDIOMYOPATHY; I42.0 - DILATED CARDIOMYOPATHY
[2017-05-11 15:59] LABS: INR 3.23 (0.82-1.09); PROTHROMBIN TIME (PATIENT) 36.5 SEC (9.98-11.88)
[2017-05-11 18:58] VITALS: BP 105/54; PULSE 70; TEMP 98.8
== END 2017-05-11 18:32 | DRG 198 ==
LOC: JER 11:40 → JERBED 15:06 → J4W 20:45
PROVIDERS: ADMIT Family Medicine; ATTEND Family Medicine
DX: I25.5 Ischemic cardiomyopathy (principal); I11.0 Hypertensive heart disease with heart failure; I50.23 Acute on chronic systolic (congestive) heart failure; E66.01 Morbid (severe) obesity due to excess calories; I48.2 Chronic atrial fibrillation; Z68.41 Body mass index [BMI] 40.0-44.9, adult; I25.10 Atherosclerotic heart disease of native coronary artery without angina pectoris; E78.5 Hyperlipidemia, unspecified; J45.21 Mild intermittent asthma with (acute) exacerbation
CPT/HCPCS: 36415; 71046-TC-FY; 80048; 80053; 81003; 81015; 82550; 82553; 83735; 83880; 84100; 84443; 84484; 85025; 85027; 85610; 93005; 93010; 93306-TC; 94640; 99284-25